=== PATIENT | female | born 1975 | race African-American/Black ===

== ENCOUNTER 2016-04-08 15:12 | Emergency (ER) | payer OTHER ==
[2016-04-08 15:19] VITALS: BP 149/96; TEMP 97.8; BMI 29.7
--- NOTE | 2016-04-08 15:39 | ED.PDOC ---
General ED Provider: Dr. KELVIN GLOVER JR Chief Complaint: Abdominal Pain Stated Complaint: SHARP/DULL PAIN TO THE LEFT LOWER MIDDLE ABD TO GROIN AREA. [ End ]5 days 97.8 79 20 97% 149/96 7/10 cramping pain sharpin LLQ suprapubic and shoulder pain Time Seen by Physician: 15:38 Mode of Arrival: Walk-In Information Source: Patient Exam Limitations: No limitations [facility] Documentation Reviewed and Agree: No Review of Systems - Review Of Systems Constitutional: Reports: Malaise Eyes: Reports: No symptoms Ears, Nose, Mouth, Throat: Reports: No symptoms Respiratory: Reports: No symptoms Cardiac: Reports: No symptoms GI: Reports: Abdominal pain : Reports: No symptoms Musculoskeletal: Reports: No symptoms Skin: Reports: No symptoms Neurological: Reports: No symptoms Endocrine: Reports: No symptoms Hematologic/Lymphatic: Reports: No symptoms All Other Systems: Other Past Medical History - Past Medical History Previously Healthy: Yes Endocrine: Reports: None, Dyslipidemia Cardiovascular: Reports: Hypertension Respiratory: Reports: None Hematological: Reports: Anemia Gastrointestinal: Reports: None Genitourinary: Reports: None Neuro/Psych: Reports: Migraine Musculoskeletal: Reports: None Cancer: Reports: None Last Menstrual Period: 2008 Other Pertinent Past Medical History: . - Surgical History General Surgical History: Reports: Other (lump removed from right breast 1995) - Family History Family History: Reports: Unknown - Social History Smoking Status: Current some day smoker Hx Substance Use: No Alcohol Screening: None - Immunizations Tetanus Shot up to Date: Yes Physical Exam - Physical Exam Appearance: Well-appearing Pain Distress: Moderate Eyes: BELINDA, EOMI, Conjunctiva clear ENT: Ears normal, Nose normal, Oropharynx normal Neck: Supple Respiratory: Airway patent, Breath sounds clear, Breath sounds equal, Respirations nonlabored Cardiovascular: RRR, Pulses normal, No rub, No murmur GI/: Tender (LLQ) Musculoskeletal: Normal strength, ROM intact, No edema, No calf tenderness Skin: Warm, Dry, Normal color Neurological: Sensation intact, Motor intact, Reflexes intact, Cranial nerves intact, Alert, Oriented Psychiatric: Affect appropriate, Mood appropriate Critical Care Note - Critical Care Note Total Time (mins): 0 Course - Course Hematology/Chemistry: 04/08/16 16:31 04/08/16 16:31 Orders, Labs, Meds: Lab Review 04/08/16 04/08/16 15:38 16:31 WBC 3.79 L RBC 4.38 Hgb 12.6 Hct 38.5 MCV 87.9 MCH 28.8 MCHC 32.7 RDW Coeff of Asim 13.0 Plt Count 229 Immature Gran % (Auto) 0.3 Neut % (Auto) 48.8 Lymph % (Auto) 42.5 [place] % (Auto) 5.8 Eos % (Auto) 1.8 Baso % (Auto) 0.8 Immature Gran # (Auto) 0.0 Neut # 1.9 L Lymph # 1.6 [place] # 0.2 L Eos # 0.1 Baso # 0.0 Sodium 141 Potassium 3.5 Chloride 105 Carbon Dioxide 29 Anion Gap 10.5 BUN 4 L Creatinine 0.83 Estimated GFR (MDRD) 92.00 BUN/Creatinine Ratio 4.81 Glucose 70 Calcium 9.3 Total Bilirubin 0.38 AST 17 ALT 15 Alkaline Phosphatase 82 Total Protein 7.2 Albumin 3.9 Globulin 3.3 Albumin/Globulin Ratio 1.18 Amylase 95 Lipase 35 Urine Color Yellow Urine Clarity Clear Urine pH 7.0 Ur Specific [place] 1.010 Urine Protein Negative Urine Glucose (UA) Negative Urine Ketones Negative Urine Blood Negative Urine Nitrite Negative Urine Bilirubin Negative Urine Urobilinogen 0.2 Ur Leukocyte Esterase Negative Urine Test Negative H. pylori IgG Antibody Positive Orders Category Date Time Status AMYLASE Stat LAB 04/08/16 16:31 Completed CBC W/ AUTO DIFF Stat LAB 04/08/16 16:31 Completed COMPREHENSIVE METABOLIC PANEL Stat LAB 04/08/16 16:31 Completed H. PYLORI SCREEN Stat LAB 04/08/16 16:31 Completed LIPASE Stat LAB 04/08/16 16:31 Completed URINALYSIS C & S IF INDICATED Stat LAB 04/08/16 15:38 Completed URINE Stat LAB 04/08/16 15:38 Completed Dicyclomine HCl [Bentyl] MEDS 04/08/16 15:48 Discontinued 20 mg PO ONCE STA CT ABDOMEN/PELVIS WO CONTRAST Stat RADS 04/08/16 15:48 Completed Medications Discontinued Medications Generic Name Dose Route Start Last Admin Trade Name Freq PRN Reason Stop Dose Admin Dicyclomine HCl 20 mg 04/08/16 15:48 04/08/16 16:04 Bentyl PO 04/08/16 15:49 20 mg ONCE STA Administration Vital Signs: Temp Pulse Resp BP Pulse Ox 04/08/16 15:13 97.8 F 79 20 149/96 H 97 Departure - Departure Time of Disposition: 17:27 Disposition: HOME SELF-CARE Discharge Problem: Helicobacter positive gastritis Instructions: Helicobacter Pylori (ED) Condition: Good Pt referred to PMD for follow-up: Yes Prescriptions: Hydrocodone Bit/Acetaminophen [[place] 5-325] 1 - 2 tab PO Q6HR PRN #20 tablet PRN Reason: pain Clarithromycin 500 mg PO BID #30 tablet Metronidazole [Flagyl] 500 mg PO BID #30 tablet Pantoprazole Sodium [Protonix] 20 mg PO BID #30 tablet. Allergies/Adverse Reactions: Allergies Penicillins Adverse Reaction (Verified 04/08/16 15:22) Sulfa (Sulfonamide Antibiotics) Adverse Reaction (Verified 04/08/16 15:22) sulfamethoxazole [From Bactrim] Adverse Reaction (Verified 04/08/16 15:22) trimethoprim [From Bactrim] Adverse Reaction (Verified 04/08/16 15:22) Home Medications: Ambulatory Orders Atorvastatin Calcium [Lipitor] 10 mg PO BEDTIME #30 tablet 11/05/15 Lisinopril 20 mg PO DAILY #30 tablet 11/05/15 Clarithromycin 500 mg PO BID #30 tablet 04/08/16 Hydrocodone Bit/Acetaminophen [[place] 5-325] 1 - 2 tab PO Q6HR PRN #20 tablet Metronidazole [Flagyl] 500 mg PO BID #30 tablet 04/08/16 Pantoprazole Sodium [Protonix] 20 mg PO BID #30 tablet. 04/08/16
[2016-04-08] MEDS ORDERED: BENTYL PO STA (15:48)
[2016-04-08 16:33] LABS: BASOPHILS % (AUTO) 0.8 % (0.0-3.0); EOSINOPHILS # (AUTO) 0.1 K/ul (0.0-0.7); EOSINOPHILS % (AUTO) 1.8 % (0.0-7.0); HEMATOCRIT 38.5 % (37.0-47.0); HEMOGLOBIN 12.6 g/dl (12.0-16.0); IMMATURE GRANULOCYTE % (AUTO) 0.3 % (0.0-5.0); LYMPHOCYTES # (AUTO) 1.6 K/uL (0.60-3.4); LYMPHOCYTES % (AUTO) 42.5 (10.0-50.0); MEAN CORPUSCULAR HEMOGLOBIN 28.8 pg (27.0-31.0); MEAN CORPUSCULAR HGB CONC 32.7 (31.8-35.4); MEAN CORPUSCULAR VOLUME 87.9 fl (81.0-99.0); MONOCYTES # (AUTO) 0.2 K/uL (0.4-2.0); MONOCYTES % (AUTO) 5.8 (0-10); NEUTROPHILS # (AUTO) 1.9 K/ul (2.0-6.9); NEUTROPHILS % (AUTO) 48.8; PLATELET COUNT 229 10^3/uL (140-440); RED BLOOD COUNT 4.38 10^6/ul (4.20-5.40); WHITE BLOOD COUNT 3.79 K/ul (4.6-10.2)
[2016-04-08 16:36] LABS: BILIRUBIN,URINE Negative (NEGATIVE); KETONES,URINE Negative (NEGATIVE); LEUKOCYTE ESTERASE ,URINE Negative (NEGATIVE); NITRITE,URINE Negative (NEGATIVE); PROTEIN,URINE Negative (NEGATIVE); URINE, BLOOD Negative (NEGATIVE)
[2016-04-08 16:41] LABS: URINE PREGNANCY INTERNAL QC INTERNAL QC VALID
[2016-04-08 16:45] LABS: H. PYLORI ANTIBODY POSITIVE (NEGATIVE); H.PYLORI INTERNAL QC INTERNAL QC VALID
[2016-04-08 16:51] LABS: ADD URINE MICROSCOPIC NO
[2016-04-08 16:55] LABS: ALBUMIN 3.9 g/dL (3.4-5.0); ALBUMIN/GLOBULIN RATIO 1.18; ANION GAP 10.5; BILIRUBIN,TOTAL 0.38 mg/dL (0.00-1.20); BUN/CREATININE RATIO 4.81; CALCIUM 9.3 mg/dL (8.2-10.2); CREATININE 0.83 mg/dL (0.60-1.30); POTASSIUM 3.5 mmol/L (3.5-5.10); TOTAL PROTEIN 7.2 g/dL (6.4-8.2)
--- NOTE | 2016-04-08 17:18 | CT ---
EXAM: CT abdomen and pelvis without contrast HISTORY: Abdominal pain TECHNIQUE: Multi-slice transaxial helical with coronal and sagittal reformed images COMPARISON: CT abdomen/pelvis from 03/25/2015 FINDINGS: The lung bases are free of acute airspace or interstitial opacities. The heart size is no rmal. There are no pericardial or pleural effusions. A calcified granuloma is noted in the left lowe r lobe. The hepatic attenuation is normal relative to the spleen. The gallbladder is present without biliar y dilatation. The pancreas and adrenal glands are normal. The spleen has normal size and attenuati on. The kidneys and ureters are grossly normal. Uterus is grossly normal. There is suggestion of a simple cyst in the right ovary measuring 1.9 cm. This is probably unchanged. The intestines incl uding appendix have normal caliber. The abdominal aorta has normal caliber. The uterus and left ad nexa are grossly normal. No lymphadenopathy or ascites. The bones are free of suspicious osteolytic or osteoblastic lesions. IMPRESSION: 1. Persistent probable simple cyst in the right ovary measuring 1.9 cm. 2. Normal appendix. Nonobstructive intestinal gas pattern. 3. Normal renal collecting systems. 4. No lymphadenopathy or ascites.
== END 2016-04-08 17:52 | disposition home or self-care (01) ==
LOC: ED 15:12
DX: K29.60 Other gastritis without bleeding (principal); B96.81 Helicobacter pylori [H. pylori] as the cause of diseases classified elsewhere; D64.9 Anemia, unspecified; I10 Essential (primary) hypertension; E78.5 Hyperlipidemia, unspecified; F17.210 Nicotine dependence, cigarettes, uncomplicated; Z79.899 Other long term (current) drug therapy
CPT/HCPCS: 36415; 80053; 81001; 81025; 82150; 83690; 85025; 86677; 99283

== ENCOUNTER 2016-06-24 16:27 | Outpatient (CLI) | END 2016-06-24 16:28 | disposition home or self-care (01) | LOC: LAB 16:27 | PROVIDERS: ATTEND Nurse Practitioner Family | DX: J02.9 Acute pharyngitis, unspecified (principal) | CPT/HCPCS: 87651; 87880 ==

== ENCOUNTER 2016-08-10 17:17 | Emergency (ER) | payer OTHER ==
[2016-08-10 17:19] VITALS: BP 148/95; TEMP 97.9; BMI 30.4
[2016-08-10 17:48] LABS: ADD URINE MICROSCOPIC NO; BILIRUBIN,URINE Negative (NEGATIVE); KETONES,URINE Negative (NEGATIVE); LEUKOCYTE ESTERASE ,URINE Negative (NEGATIVE); NITRITE,URINE Negative (NEGATIVE); PROTEIN,URINE Negative (NEGATIVE); URINE, BLOOD Negative (NEGATIVE)
[2016-08-10 17:54] LABS: URINE PREGNANCY INTERNAL QC INTERNAL QC VALID
[2016-08-10 18:08] LABS: BASOPHILS % (AUTO) 0.6 % (0.0-3.0); EOSINOPHILS # (AUTO) 0.1 K/ul (0.0-0.7); HEMATOCRIT 42.3 % (37.0-47.0); HEMOGLOBIN 13.9 g/dl (12.0-16.0); IMMATURE GRANULOCYTE % (AUTO) 0.4 % (0.0-5.0); LYMPHOCYTES % (AUTO) 40.2 (10.0-50.0); MEAN CORPUSCULAR HEMOGLOBIN 28.9 pg (27.0-31.0); MEAN CORPUSCULAR HGB CONC 32.9 (31.8-35.4); MEAN CORPUSCULAR VOLUME 87.9 fl (81.0-99.0); MONOCYTES # (AUTO) 0.3 K/uL (0.4-2.0); MONOCYTES % (AUTO) 5.6 (0-10); NEUTROPHILS # (AUTO) 2.6 K/ul (2.0-6.9); NEUTROPHILS % (AUTO) 51.2; PLATELET COUNT 263 10^3/uL (140-440); RED BLOOD COUNT 4.81 10^6/ul (4.20-5.40); WHITE BLOOD COUNT 4.98 K/ul (4.6-10.2)
--- NOTE | 2016-08-10 18:08 | CT ---
EXAM: CT abdomen and pelvis without contrast HISTORY: Dull pain in left lower quadrant TECHNIQUE: Multi-slice transaxial helical with coronal and sagittal reformed images COMPARISON: CT abdomen/pelvis from 04/08/2016 FINDINGS: The lung bases are free of acute airspace or interstitial opacities. The heart size is no rmal. There are no pericardial or pleural effusions. A calcified granuloma is noted in the left lowe r lobe. The hepatic attenuation is normal relative to the spleen. The gallbladder is present without biliar y dilatation. A tiny hypodensity in the right posterior hepatic lobe is suggested measuring 3.6 mm that is too small to characterize with accuracy but likely represents a simple cyst. The pancreas a nd adrenal glands are normal. The spleen has normal size and attenuation. No nephrolithiasis or ur eterolithiasis are appreciated. The ureters have normal caliber. The nonopacified bladder is davie l. The intestines including the appendix have normal caliber. No lymphadenopathy or ascites are apprec iated. The aorta is normal caliber. The uterus and left adnexa are grossly normal. A simple cyst at the right adnexa and is 2.1 cm. The bones are free of suspicious osteolytic or osteoblastic lesions. IMPRESSION: 1. Simple cyst in the right adnexa measuring 2.1 cm. 2. Normal appendix. Nonobstructive intestinal gas pattern. 3. Normal renal collecting systems. 4. Tiny simple cyst suggested in the right posterior hepatic lobe.
[2016-08-10 18:25] LABS: ALBUMIN 4.1 g/dL (3.4-5.0); ALBUMIN/GLOBULIN RATIO 1.03; ANION GAP 12.4; BILIRUBIN,TOTAL 0.33 mg/dL (0.00-1.20); BUN/CREATININE RATIO 5.31; CALCIUM 9.5 mg/dL (8.2-10.2); CREATININE 0.94 mg/dL (0.60-1.30); POTASSIUM 3.4 mmol/L (3.5-5.10); TOTAL PROTEIN 8.1 g/dL (6.4-8.2)
--- NOTE | 2016-08-10 18:34 | ED.PDOC ---
General ED Provider: Dr. LUISA CASTELLANO Chief Complaint: Abdominal Pain Stated Complaint: abdominal pain Time Seen by Physician: 17:17 (seen with boat cleaner at all times ) Mode of Arrival: Walk-In Information Source: Patient Exam Limitations: No limitations [facility] Documentation Reviewed and Agree: No GI Complaint Exam - Abdominal Pain Complaint/Exam Onset: Gradual Duration: 1 day Symptoms Are: Still present Timing: Intermittent Initial Severity: Mild Current Severity: Mild Location of Pain: LLQ Character: Reports: Dull Aggravating: Reports: None Alleviating: Reports: None Associated Signs and Symptoms: Denies: Diaphoresis, Fever, Cough, Chest pain, Dizziness, Back pain, Constipation, Blood in stool, Dysuria, Urinary frequency, Decreased urine output, Decreased appetite, Vaginal bleeding, Vaginal discharge , Nausea, Vomiting, Diarrhea, Sore throat, Decreased activity Related History: Reports: Similar episode AAA Risk Factors: Reports: None Ectopic Risk Factors: Reports: None Ovarian Torsion Risk Factors: Reports: None Surgical Obstruction Risk Factors: Reports: None Related Surgical History: Reports: None Patient Rh Status: Unknown Abdominal Findings: Present: None Differential Diagnoses: Appendicitis, Bowel Obstruction, Constipation, Diverticulitis, Gastroenteritis Review of Systems - Review Of Systems Constitutional: Reports: No symptoms Eyes: Reports: No symptoms Ears, Nose, Mouth, Throat: Reports: No symptoms Respiratory: Reports: No symptoms Cardiac: Reports: No symptoms GI: Reports: Abdominal pain : Reports: No symptoms Musculoskeletal: Reports: No symptoms Skin: Reports: No symptoms Neurological: Reports: No symptoms Endocrine: Reports: No symptoms Hematologic/Lymphatic: Reports: No symptoms All Other Systems: Reviewed and Negative Past Medical History - Past Medical History Previously Healthy: Yes Endocrine: Reports: None, Dyslipidemia Cardiovascular: Reports: Hypertension Respiratory: Reports: None Hematological: Reports: Anemia Gastrointestinal: Reports: None Genitourinary: Reports: None Neuro/Psych: Reports: Migraine Musculoskeletal: Reports: None Cancer: Reports: None Last Menstrual Period: 4 years ago Other Pertinent Past Medical History: . - Surgical History General Surgical History: Reports: Other (lump removed from right breast 1995) - Family History Family History: Reports: Unknown - Social History Smoking Status: Current some day smoker Hx Substance Use: No Alcohol Screening: None Physical Exam - Physical Exam Appearance: Well-appearing, No pain distress, Well-nourished Eyes: BELINDA, EOMI, Conjunctiva clear ENT: Ears normal, Nose normal, Oropharynx normal Respiratory: Airway patent, Breath sounds clear, Breath sounds equal, Respirations nonlabored Cardiovascular: RRR, Pulses normal, No rub, No murmur GI/: Soft, Nontender, No masses, Bowel sounds normal, No Organomegaly Musculoskeletal: Normal strength, ROM intact, No edema, No calf tenderness Skin: Warm, Dry, Normal color Neurological: Sensation intact, Motor intact, Reflexes intact, Cranial nerves intact, Alert, Oriented Psychiatric: Affect appropriate, Mood appropriate Interpretation - Radiology Interpretation Radiology Interpretation By: Radiologist Radiology Results: No acute changes Re-Evaluation - Re-Evaluation Time of Re-Evaluation: 18:33 Status: Improved Vital Signs Stable: Yes Pain Level: 0 Appearance: NAD Lungs: Clear Skin: Warm and Dry Neuro: Alert and Oriented X3 CV: RRR Critical Care Note - Critical Care Note Total Time (mins): 0 Course - Course Hematology/Chemistry: 08/10/16 18:00 08/10/16 18:00 Orders, Labs, Meds: Lab Review 08/10/16 08/10/16 17:30 18:00 WBC 4.98 RBC 4.81 Hgb 13.9 Hct 42.3 MCV 87.9 MCH 28.9 MCHC 32.9 RDW Coeff of Asim 12.9 Plt Count 263 Immature Gran % (Auto) 0.4 Neut % (Auto) 51.2 Lymph % (Auto) 40.2 [place] % (Auto) 5.6 Eos % (Auto) 2.0 Baso % (Auto) 0.6 Immature Gran # (Auto) 0.0 Neut # 2.6 Lymph # 2.0 [place] # 0.3 L Eos # 0.1 Baso # 0.0 Sodium 140 Potassium 3.4 L Chloride 104 Carbon Dioxide 27 Anion Gap 12.4 BUN 5 L Creatinine 0.94 Estimated GFR (MDRD) 80.00 BUN/Creatinine Ratio 5.31 Glucose 73 Calcium 9.5 Total Bilirubin 0.33 AST 21 ALT 25 Alkaline Phosphatase 86 Total Protein 8.1 Albumin 4.1 Globulin 4.0 Albumin/Globulin Ratio 1.03 Amylase 83 Lipase 25 Urine Color Yellow Urine Clarity Clear Urine pH 7.0 Ur Specific [place] 1.020 Urine Protein Negative Urine Glucose (UA) Negative Urine Ketones Negative Urine Blood Negative Urine Nitrite Negative Urine Bilirubin Negative Urine Urobilinogen 1.0 Ur Leukocyte Esterase Negative Urine Test Negative Orders Category Date Time Status AMYLASE Stat LAB 08/10/16 18:00 Completed CBC W/ AUTO DIFF Stat LAB 08/10/16 18:00 Completed COMPREHENSIVE METABOLIC PANEL Stat LAB 08/10/16 18:00 Completed LIPASE Stat LAB 08/10/16 18:00 Completed URINALYSIS C & S IF INDICATED Stat LAB 08/10/16 17:30 Completed URINE Stat LAB 08/10/16 17:[address] ABDOMEN/PELVIS WO CONTRAST Stat RADS 08/10/16 17:40 Completed Vital Signs: Temp Pulse Resp BP Pulse Ox 08/10/16 17:17 97.9 F 81 18 148/95 H 98 Departure - Departure Time of Disposition: 18:33 Disposition: HOME SELF-CARE Discharge Problem: Abdominal pain Instructions: Abdominal Pain (ED) Condition: Good Pt referred to PMD for follow-up: No Prescriptions: Hydrocodone/Acetaminophen [[place] 10-325 Tablet] 1 each PO Q8HR #5 tablet Allergies/Adverse Reactions: Allergies Penicillins Adverse Reaction (Verified 08/10/16 17:20) Sulfa (Sulfonamide Antibiotics) Adverse Reaction (Verified 08/10/16 17:20) sulfamethoxazole [From Bactrim] Adverse Reaction (Verified 08/10/16 17:20) trimethoprim [From Bactrim] Adverse Reaction (Verified 08/10/16 17:20) Home Medications: Ambulatory Orders Hydrocodone/Acetaminophen [[place] 10-325 Tablet] 1 each PO Q8HR #5 tablet
== END 2016-08-10 18:42 | disposition home or self-care (01) ==
LOC: ED 17:17
DX: R10.32 Left lower quadrant pain (principal); Z72.0 Tobacco use
CPT/HCPCS: 36415; 80053; 81001; 81025; 82150; 83690; 85025; 99283

== ENCOUNTER 2017-02-20 16:27 | Emergency (ER) ==
[2017-02-20 16:36] VITALS: TEMP 98.7; BMI 32.8
[2017-02-20] MEDS ORDERED: TORADOL IVP STA (16:59)
[2017-02-20] MEDS ORDERED: SODIUM CHLORIDE 1,000 ML IV STA (16:59)
--- NOTE | 2017-02-20 17:01 | ED.PDOC ---
General ED Provider: Dr. FUNMILAYO ZARATE Chief Complaint: Back Pain Stated Complaint: Patient state she woke up with severe bilateral flank pain this morning. Took the over the counter medication but still has pain. Time Seen by Physician: 17:00 Mode of Arrival: Walk-In Information Source: Patient Exam Limitations: No limitations [facility] and Triage Documentation Reviewed and Agree: Yes GI Complaint Exam - Abdominal Pain Complaint/Exam Onset: Gradual Duration: 1 day Symptoms Are: Still present Timing: Constant Initial Severity: Severe Current Severity: Moderate Location of Pain: Suprapubic (radiatin from the flanks. ) Associated Signs and Symptoms: Reports: Back pain. Denies: Diaphoresis, Constipation, Dysuria, Decreased urine output, Vaginal bleeding AAA Risk Factors: Reports: None Cardiac Risk Factors: Reports: None Ectopic Risk Factors: Reports: None Ovarian Torsion Risk Factors: Reports: Hysterectomy Surgical Obstruction Risk Factors: Reports: None Related Surgical History: Reports: None Patient Rh Status: Unknown Abdominal Findings: Present: CVA Tenderness Differential Diagnoses: UTI Review of Systems - Review Of Systems Constitutional: Reports: No symptoms Eyes: Reports: No symptoms Ears, Nose, Mouth, Throat: Reports: No symptoms Respiratory: Reports: No symptoms Cardiac: Reports: No symptoms GI: Reports: No symptoms : Reports: Flank pain Musculoskeletal: Reports: Back pain Skin: Reports: No symptoms Neurological: Reports: No symptoms Endocrine: Reports: No symptoms Hematologic/Lymphatic: Reports: No symptoms All Other Systems: Reviewed and Negative Past Medical History - Past Medical History Previously Healthy: Yes Endocrine: Reports: None, Dyslipidemia Cardiovascular: Reports: Hypertension Respiratory: Reports: None Hematological: Reports: Anemia Gastrointestinal: Reports: None Genitourinary: Reports: None Neuro/Psych: Reports: Migraine Musculoskeletal: Reports: None Cancer: Reports: None Last Menstrual Period: hysterectomy Other Pertinent Past Medical History: . - Surgical History General Surgical History: Reports: Other (lump removed from right breast 1995) - Family History Family History: Reports: Unknown - Social History Smoking Status: Current every day smoker, Light tobacco smoker Hx Substance Use: No Alcohol Screening: None Physical Exam - Physical Exam Appearance: Ill-appearing Ill-appearing: Moderate Pain Distress: Severe Neck: Supple Respiratory: Airway patent, Breath sounds clear, Breath sounds equal, Respirations nonlabored Cardiovascular: RRR, Pulses normal, No rub, No murmur GI/: Soft, Nontender, No masses, Bowel sounds normal, No Organomegaly Musculoskeletal: Normal strength, ROM intact Skin: Warm, Dry Neurological: Sensation intact Psychiatric: Anxious Interpretation - Radiology Interpretation Radiology Interpretation By: Radiologist Radiology Results: Negative Exam Interpreted: CT Scan (Abdomen ) Critical Care Note - Critical Care Note Total Time (mins): 0 Course - Course Hematology/Chemistry: 02/20/17 17:08 02/20/17 17:08 Orders, Labs, Meds: Lab Review 02/20/17 02/20/17 02/20/17 16:59 17:08 17:08 WBC 4.83 RBC 4.69 Hgb 13.3 Hct 41.0 MCV 87.4 MCH 28.4 MCHC 32.4 RDW Coeff of Asim 13.2 Plt Count 273 Immature Gran % (Auto) 0.2 Neut % (Auto) 48.4 Lymph % (Auto) 43.1 [place] % (Auto) 5.2 Eos % (Auto) 2.1 Baso % (Auto) 1.0 Immature Gran # (Auto) 0.0 Neut # 2.3 Lymph # 2.1 [place] # 0.3 L Eos # 0.1 Baso # 0.1 Sodium 140 Potassium 3.6 Chloride 107 Carbon Dioxide 23 Anion Gap 13.6 BUN 5 L Creatinine 0.84 Estimated GFR (MDRD) 91.00 BUN/Creatinine Ratio 5.95 Glucose 78 Calcium 9.4 Total Bilirubin 0.25 AST 19 ALT 14 Alkaline Phosphatase 86 Total Protein 7.7 Albumin 3.8 Globulin 3.9 Albumin/Globulin Ratio 0.97 Amylase 93 Lipase 36 Urine Color [place] Urine Clarity Cloudy Urine pH 5.5 Ur Specific [place] 1.020 Urine Protein Negative Urine Glucose (UA) Trace Urine Ketones Negative Urine Blood Negative Urine Nitrite Positive Urine Bilirubin Negative Urine Urobilinogen 1.0 Ur Leukocyte Esterase Negative Urine Microscopic WBC 2-5 Ur Squamous Epith Cells 5-10 Urine Bacteria 2+ Orders Category Date Time Status AMYLASE Stat LAB 02/20/17 17:08 Completed CBC W/ AUTO DIFF Stat LAB 02/20/17 17:08 Completed COMPREHENSIVE METABOLIC PANEL Stat LAB 02/20/17 17:08 Completed LIPASE Stat LAB 02/20/17 17:08 Completed UA [URINALYSIS C & S IF INDICATED] Stat LAB 02/20/17 16:59 Completed URINE CULTURE Stat LAB 02/20/17 16:59 Received Ketorolac Tromethamine [Toradol] MEDS 02/20/17 16:59 Discontinued 30 mg IVP ONCE STA Levofloxacin/D5w [Levaquin] 100 ml MEDS 02/20/17 17:42 Discontinued IV .STK-MED Levofloxacin/D5w [Levaquin] 500 mg MEDS 02/20/17 17:39 Discontinued Premix 100 ml D5w 1 bag IV ONCE Morphine Sulfate [Morphine 2 mg/ml Syringe] MEDS 02/20/17 18:34 Discontinued 2 mg IVP ONCE STA Ondansetron HCl/Pf [Zofran 4 mg/2 ml] MEDS 02/20/17 18:34 Discontinued 4 mg IVP ONCE STA Sodium Chloride 0.9% [Sodium Chloride] 1,000 ml MEDS 02/20/17 16:[address] ABD/PEL WO RENAL STONE PROT Stat RADS 02/20/17 17:40 Completed Medications Discontinued Medications Generic Name Dose Route Start Last Admin Trade Name Freq PRN Reason Stop Dose Admin Sodium Chloride 1,000 mls @ 1,000 mls/hr 02/20/17 16:59 02/20/17 17:20 Sodium Chloride IV 02/20/17 17:58 1,000 mls/hr BOLUS STA Administration Levofloxacin/Dextrose 500 mg/ 100 mls @ 100 mls/hr 02/20/17 17:39 02/20/17 17 :43 Dextrose IV 02/20/17 18:38 100 mls/hr ONCE STA Administration Ketorolac Tromethamine 30 mg 02/20/17 16:59 02/20/17 17:23 Toradol IVP 02/20/17 17:00 30 mg ONCE STA Administration Morphine Sulfate 2 mg 02/20/17 18:34 Morphine 2 Mg/Ml Syringe IVP 02/20/17 18:35 ONCE STA Ondansetron HCl 4 mg 02/20/17 18:34 Zofran 4 Mg/2 Ml IVP 02/20/17 18:35 ONCE STA Vital Signs: Temp Pulse Resp BP Pulse Ox 02/20/17 18:34 152/96 H 02/20/17 16:27 98.7 F 78 16 160/91 H 98 Departure - Departure Time of Disposition: 19:00 Disposition: HOME SELF-CARE Discharge Problem: Urinary tract infection Qualifiers: Urinary tract infection type: acute cystitis Hematuria presence: without hematuria Qualified Code(s): N30.00 - Acute cystitis without hematuria Instructions: Urinary Tract Infection in Women (ED) Condition: Stable Pt referred to PMD for follow-up: Yes Additional Instructions: Take Medications as prescribed Follow up with PCP in 3 days Prescriptions: Levofloxacin [Levaquin] 500 mg PO DAILY #10 tablet Oxycodone-Acetaminophen 5-325 [Percocet 5-325] 1 tab PO Q6H #14 tablet Allergies/Adverse Reactions: Allergies Penicillins Adverse Reaction (Verified 02/20/17 16:35) Sulfa (Sulfonamide Antibiotics) Adverse Reaction (Verified 02/20/17 16:35) sulfamethoxazole [From Bactrim] Adverse Reaction (Verified 02/20/17 16:35) trimethoprim [From Bactrim] Adverse Reaction (Verified 02/20/17 16:35) Home Medications: Ambulatory Orders Levofloxacin [Levaquin] 500 mg PO DAILY #10 tablet 02/20/17 Oxycodone-Acetaminophen 5-325 [Percocet 5-325] 1 tab PO Q6H #14 tablet 02/20/17 Disposition Discussed With: Patient, Family
[2017-02-20 17:07] LABS: BILIRUBIN,URINE Negative (NEGATIVE); KETONES,URINE Negative (NEGATIVE); LEUKOCYTE ESTERASE ,URINE Negative (NEGATIVE); NITRITE,URINE Positive (NEGATIVE); PH,URINE 5.5 (5-9); PROTEIN,URINE Negative (NEGATIVE); URINE, BLOOD Negative (NEGATIVE)
[2017-02-20 17:08] LABS: ADD URINE MICROSCOPIC YES; BACTERIA,URINE 2+ (NOT PRESENT)
[2017-02-20 17:13] LABS: BASOPHILS # (AUTO) 0.1 K/uL (0-0.2); EOSINOPHILS # (AUTO) 0.1 K/ul (0.0-0.7); EOSINOPHILS % (AUTO) 2.1 % (0.0-7.0); HEMOGLOBIN 13.3 g/dl (12.0-16.0); IMMATURE GRANULOCYTE % (AUTO) 0.2 % (0.0-5.0); LYMPHOCYTES # (AUTO) 2.1 K/uL (0.60-3.4); LYMPHOCYTES % (AUTO) 43.1 (10.0-50.0); MEAN CORPUSCULAR HEMOGLOBIN 28.4 pg (27.0-31.0); MEAN CORPUSCULAR HGB CONC 32.4 (31.8-35.4); MEAN CORPUSCULAR VOLUME 87.4 fl (81.0-99.0); MONOCYTES # (AUTO) 0.3 K/uL (0.4-2.0); MONOCYTES % (AUTO) 5.2 (0-10); NEUTROPHILS # (AUTO) 2.3 K/ul (2.0-6.9); NEUTROPHILS % (AUTO) 48.4; PLATELET COUNT 273 10^3/uL (140-440); RED BLOOD COUNT 4.69 10^6/ul (4.20-5.40); WHITE BLOOD COUNT 4.83 K/ul (4.6-10.2)
[2017-02-20 17:33] LABS: ALBUMIN 3.8 g/dL (3.4-5.0); ALBUMIN/GLOBULIN RATIO 0.97; ANION GAP 13.6; BILIRUBIN,TOTAL 0.25 mg/dL (0.00-1.20); BUN/CREATININE RATIO 5.95; CALCIUM 9.4 mg/dL (8.2-10.2); CREATININE 0.84 mg/dL (0.60-1.30); POTASSIUM 3.6 mmol/L (3.5-5.10); TOTAL PROTEIN 7.7 g/dL (6.4-8.2)
[2017-02-20] MEDS ORDERED: LEVAQUIN 500 MG in PREMIX 100 ML D5W 1 BAG IV STA (17:39)
[2017-02-20] MEDS ORDERED: LEVAQUIN 100 ML IV ONE (17:42)
--- NOTE | 2017-02-20 18:17 | CT ---
EXAM: CT of the abdomen pelvis without contrast History: Bilateral flank pain. Comparison: CT abdomen pelvis 08/10/2016 Technique: Multiplanar CT images through the abdomen pelvis were obtained without the administration of IV contrast Findings: Lung bases are free of consolidation. Calcified granuloma within the left lower lobe. No acute osseous abnormalities. No discrete gallstones identified by CT. No focal liver or splenic lesions. No renal stones and no hydronephrosis. No ureteral calculi. Bladder is not well distended. There is no focal bladder wall thickening. The appendix is normal. No bowel obstruction. No free air and no ascites. No peripanc reatic inflammation. Adrenal glands are unremarkable. No free air and no ascites. Uterus is not se en. Impression: No acute intra-abdominal or pelvic process
[2017-02-20] MEDS ORDERED: MORPHINE 2 MG/ML SYRINGE IVP STA (18:34)
[2017-02-20] MEDS ORDERED: ZOFRAN 4 MG/2 ML IVP STA (18:34)
[2017-02-20 19:19] VITALS: BP 122/94
== END 2017-02-20 19:45 | disposition home or self-care (01) ==
LOC: ED 16:27
DX: N30.00 Acute cystitis without hematuria (principal); F17.210 Nicotine dependence, cigarettes, uncomplicated
CPT/HCPCS: 36415; 74176; 80053; 81001; 82150; 83690; 85025; 87086; 96360; 96361; 96365; 96375; 99284

== ENCOUNTER 2017-04-01 18:57 | Inpatient (IN) ==
[2017-04-01] MEDS ORDERED: TORADOL IVP STA (19:09)
[2017-04-01] MEDS ORDERED: MORPHINE 2 MG/ML SYRINGE IVP STA (19:09)
[2017-04-01] MEDS ORDERED: ZOFRAN 4 MG/2 ML IVP STA (19:09)
[2017-04-01] MEDS ORDERED: POTASSIUM CHLORIDE PREMIX RUN 10 MEQ in PREMIX 100 ML WATER 1 BAG IV STA ×8 (20:41→20:43)
[2017-04-01] MEDS ORDERED: SODIUM CHLORIDE 1,000 ML IV STA (20:46)
[2017-04-01] MEDS ORDERED: POTASSIUM CHLORIDE PREMIX RUN 300 ML IV ONE (20:51)
--- NOTE | 2017-04-01 20:51 | CT ---
EXAM: CTA of the chest. History: Chest pain. Comparison: Chest radiograph 11/03/2015, chest CT 06/10/2010 Technique: Multiplanar CT images through the chest were obtained following administration of IV cont rast. MIP images and 3-D reconstructions were also acquired. Findings: Heart size is upper limits of normal. No pericardial effusion. Great vessels are unremark able. No pathologically enlarged thoracic lymph nodes. Calcified granulomas again seen within the t horax. No consolidation. No pleural fluid and no pneumothorax. No suspicious lung masses or lung n odules. Within the visualized upper abdomen, no acute findings. No acute osseous abnormalities. No pulmonary arterial filling defects. Impression: 1. No pulmonary embolism and no acute intrathoracic process. 2. Old granulomatous disease.
--- NOTE | 2017-04-01 20:56 | ED.PDOC ---
General ED Provider: Dr. ZAMZAM SANTANA-ER Chief Complaint: Chest Pain Stated Complaint: my chest hurts and my arms and legs are weak and numb Time Seen by Physician: 19:05 Mode of Arrival: Walk-In Information Source: Patient Exam Limitations: No limitations Primary Care Provider: [facility] Nursing and Triage Documentation Reviewed and Agree: Yes Reviewed sepsis parameters & appropriate labs ordered?: Yes System Inflammatory Response Syndrome: Not Applicable Sepsis Protocol: For patient's 13 years and over: Temp is 96.8 and below OR 101 and greater Pulse >90 BPM Resp >20/minute Acutely Altered Mental Status Are patient's symptoms suggestive of a new infection, such as: -Pneumonia -Skin, Soft Tissue -Endocarditis -UTI -Bone, Joint Infection -Implantable Device -Acute Abdominal Infection -Wound Infection -Meningitis -Blood Stream Catheter Infection -Unknown Cardiovascular Complaint Exam - Chest Pain Complaint/Exam Onset: Sudden Duration: one hour Symptoms Are: Still present Initial Severity: Mild Current Severity: Mild Location: Reports: Diffuse Pain Radiates: Reports: Left arm, Right arm Character: Reports: Dull, Aching, Sharp Aggravating: Reports: Exertion Alleviating: Reports: None Associated Signs and Symptoms: Denies: Diaphoresis, Nausea, Vomiting, Fever, Palpitations, Cough, Hemoptysis, Back pain, Abdominal pain, Dizziness, Short of air, Calf pain, Calf swelling Related History: Reports: Current Sam Inhibitors Related Surgical History: Reports: None History of Healthcare-Acquired Pneumonia: Reports: No AMI/ACS Risk Factors: Reports: Hypertension TAD Risk Factors: Reports: None Pulmonary Embolism Risk Factors: Reports: None Prior Care for this Complaint: No Recent Stress Test: No Recent Echo/LV Function: No JVD Present: No Subcutaneous Emphysema Present: No Diminshed Breath Sounds: No Reproducible Chest Wall Pain: No Bilateral Pulses Present: Yes Unequal Pulses Noted: No If Risk Factors for TAD Consider: Chest CT with contrast, Blood pressure control Clay Structure Builder And Servicer Consulted: No Differential Diagnoses: Acute [place], Unstable Angina, Aortic Aneurysm, Chest Wall Pain, GI Diseasae, Pulmonary Embolism Quality Indicator For Non-Traumatic Chest Pain/Syncope: EKG Performed Review of Systems - Review Of Systems Constitutional: Reports: No symptoms Eyes: Reports: No symptoms Ears, Nose, Mouth, Throat: Reports: No symptoms Respiratory: Reports: No symptoms Cardiac: Reports: Chest pain GI: Reports: No symptoms : Reports: No symptoms Musculoskeletal: Reports: No symptoms Skin: Reports: No symptoms Neurological: Reports: No symptoms Endocrine: Reports: No symptoms Hematologic/Lymphatic: Reports: No symptoms All Other Systems: Reviewed and Negative Past Medical History - Past Medical History Previously Healthy: Yes Endocrine: Reports: None, Dyslipidemia Cardiovascular: Reports: Hypertension Respiratory: Reports: None Hematological: Reports: Anemia Gastrointestinal: Reports: None Genitourinary: Reports: None Neuro/Psych: Reports: Migraine Musculoskeletal: Reports: None Cancer: Reports: None Last Menstrual Period: NA Other Pertinent Past Medical History: . - Surgical History General Surgical History: Reports: Other (lump removed from right breast 1995) - Family History Family History: Reports: Unknown - Social History Smoking Status: Current every day smoker, Light tobacco smoker Hx Substance Use: No Alcohol Screening: None Lives: With family - Immunizations Tetanus Shot up to Date: Yes Physical Exam - Physical Exam Appearance: Well-appearing, No pain distress, Well-nourished Pain Distress: Moderate Eyes: BELINDA, EOMI, Conjunctiva clear ENT: Ears normal, Nose normal, Oropharynx normal Neck: Supple Respiratory: Airway patent, Breath sounds clear, Breath sounds equal, Respirations nonlabored Cardiovascular: RRR, Pulses normal, No rub, No murmur GI/: Soft Musculoskeletal: Normal strength, ROM intact, No edema, No calf tenderness Skin: Warm, Dry, Normal color Neurological: Sensation intact Psychiatric: Affect appropriate, Mood appropriate, Anxious Interpretation - Radiology Interpretation Radiology Interpretation By: Radiologist Radiology Results: Negative Exam Interpreted: CT Scan - EKG Interpretation Time of EKG #1: 21:00 Rate: Normal Rhythm: Sinus Ectopy: None [place]: NL ST Segment: Normal Re-Evaluation - Re-Evaluation Time of Re-Evaluation: 21:00 Status: Improved Vital Signs Stable: Yes Pain Level: 1 Appearance: NAD Lungs: Clear Skin: Warm and Dry Neuro: Alert and Oriented X3 CV: RRR Physician Notification - Case Discussed Physician Notified: dr goodrich Time of Notification: 21:11 Critical Care Note - Critical Care Note Total Time (mins): 0 Course - Course Hematology/Chemistry: 04/01/17 19:15 04/01/17 19:15 Orders, Labs, Meds: Lab Review 04/01/17 04/01/17 04/01/17 19:15 19:15 19:15 WBC 5.40 RBC 4.37 Hgb 12.7 Hct 38.6 MCV 88.3 MCH 29.1 MCHC 32.9 RDW Coeff of Asim 13.0 Plt Count 267 Immature Gran % (Auto) 0.2 Neut % (Auto) 48.2 Lymph % (Auto) 42.6 [place] % (Auto) 6.1 Eos % (Auto) 2.2 Baso % (Auto) 0.7 Immature Gran # (Auto) 0.0 Neut # 2.6 Lymph # 2.3 [place] # 0.3 L Eos # 0.1 Baso # 0.0 Sodium 136 Potassium 2.8 L Chloride 104 Carbon Dioxide 26 Anion Gap 8.8 BUN 7 Creatinine 0.84 Estimated GFR (MDRD) 91.00 BUN/Creatinine Ratio 8.33 Glucose 77 Calcium 9.2 Magnesium 2.2 Total Bilirubin 0.3 AST 16 ALT 14 Alkaline Phosphatase 91 Total Creatine Kinase 152 CK-MB (CK-2) 0.8 CK-MB (CK-2) % 0.05054 Troponin I < 0.0100 Total Protein 7.4 Albumin 3.6 Globulin 3.8 Albumin/Globulin Ratio 0.95 Amylase 152 H Lipase 151 H TSH 1.038 Free T4 1.05 Orders Category Date Time Status EKG-(ED ONLY) Stat CARDIO 04/01/17 19:04 Completed NPO REMINDER: IMAGING ONCE CARE 04/01/17 19:06 Completed ED ENROUTE CONTROLLER APPLIED .ONCE EMERGENCY 04/01/17 19:04 Active IV [ED IV/MEDIPORT/POWERPORT] .ONCE EMERGENCY 04/01/17 19:05 Active AMYLASE Stat LAB 04/01/17 19:15 Completed CBC W/ AUTO DIFF Stat LAB 04/01/17 19:15 Completed COMPREHENSIVE METABOLIC PANEL Stat LAB 04/01/17 19:15 Completed CREATINE KINASE Stat LAB 04/01/17 19:15 Completed FREE T4 (FREE THYROXINE) Stat LAB 04/01/17 19:15 Completed LIPASE Stat LAB 04/01/17 19:15 Completed MAGNESIUM Stat LAB 04/01/17 19:15 Completed THYROID STIMULATING HORMONE Stat LAB 04/01/17 19:15 Completed TROPONIN I Stat LAB 04/01/17 19:15 Completed 0.9 % Sodium Chloride [Saline Flush] MEDS 04/01/17 19:05 Ordered 1 syr IVF PRN PRN Ketorolac Tromethamine [Toradol] MEDS 04/01/17 19:09 Discontinued 30 mg IVP ONCE STA Morphine Sulfate [Morphine 2 mg/ml Syringe] MEDS 04/01/17 19:09 Discontinued 2 mg IVP ONCE STA Ondansetron HCl/Pf [Zofran 4 mg/2 ml] MEDS 04/01/17 19:09 Discontinued 4 mg IVP ONCE STA Potassium Chloride [Potassium Chloride Premix Run] 10 MEDS 04/01/17 20:41 Active meq Premix 100 ml Water 1 bag IV ONCE Potassium Chloride [Potassium Chloride Premix [place]] 10 MEDS 04/01/17 20:42 Active meq Premix 100 ml Water 1 bag IV ONCE Potassium Chloride [Potassium Chloride Premix [place]] 10 MEDS 04/01/17 20:42 Active meq Premix 100 ml Water 1 bag IV ONCE Potassium Chloride [Potassium Chloride Premix [place]] 10 MEDS 04/01/17 20:42 Active meq Premix 100 ml Water 1 bag IV ONCE Potassium Chloride [Potassium Chloride Premix [place]] 10 MEDS 04/01/17 20:43 Active meq Premix 100 ml Water 1 bag IV ONCE Potassium Chloride [Potassium Chloride Premix [place]] 300 MEDS 04/01/17 20:51 Discontinued ml IV .STK-MED Sodium Chloride 0.9% [Sodium Chloride] 1,000 ml MEDS 04/01/17 20:46 Active IV 150 mls/hr CT CHEST PE PROTOCOL Stat RADS 04/01/17 19:05 Completed Medications Generic Name Dose Route Start Last Admin Trade Name Freq PRN Reason Stop Dose Admin Potassium Chloride 10 meq/ 100 mls @ 100 mls/hr 04/01/17 20:41 04/01/17 21:00 Sterile Water IV 04/01/17 21:40 100 mls/hr ONCE STA Administration Potassium Chloride 10 meq/ 100 mls @ 100 mls/hr 04/01/17 20:42 Sterile Water IV 04/01/17 21:41 ONCE STA Potassium Chloride 10 meq/ 100 mls @ 100 mls/hr 04/01/17 20:42 Sterile Water IV 04/01/17 21:41 ONCE STA Potassium Chloride 10 meq/ 100 mls @ 100 mls/hr 04/01/17 20:42 Sterile Water IV 04/01/17 21:41 ONCE STA Potassium Chloride 10 meq/ 100 mls @ 100 mls/hr 04/01/17 20:43 Sterile Water IV 04/01/17 21:42 ONCE STA Sodium Chloride 1,000 mls @ 150 mls/hr 04/01/17 20:46 04/01/17 21:00 Sodium Chloride IV 04/02/17 03:25 150 mls/hr .[id number] STA Administration Sodium Chloride 1 syr 04/01/17 19:05 04/01/17 19:53 Saline Flush IVF 1 syr PRN PRN Administration To flush IV Discontinued Medications Generic Name Dose Route Start Last Admin Trade Name Freq PRN Reason Stop Dose Admin Ketorolac Tromethamine 30 mg 04/01/17 19:09 04/01/17 19:52 Toradol IVP 04/01/17 19:10 30 mg ONCE STA Administration Morphine Sulfate 2 mg 04/01/17 19:09 04/01/17 19:46 Morphine 2 Mg/Ml Syringe IVP 04/01/17 19:10 2 mg ONCE STA Administration Ondansetron HCl 4 mg 04/01/17 19:09 04/01/17 19:44 Zofran 4 Mg/2 Ml IVP 04/01/17 19:10 4 mg ONCE STA Administration Vital Signs: Temp Pulse Resp BP Pulse Ox 04/01/17 21:08 72 16 148/97 H 100 04/01/17 18:59 97.6 F 83 16 167/103 H 99 ELIOT Risk Score ELIOT Risk Score: Risk Score Odds of by 30D 0 0.1 (0.1-0.2) 1 0.3 (0.2-0.3) 2 0.4 (0.3-0.5) 3 0.7 (0.6-0.9) 4 1.2 (1.0-1.5) 5 2.2 (1.9-2.6) 6 3.0 (2.5-3.6) 7 4.8 (3.8-6.1) Departure - Departure Time of Disposition: 21:11 Disposition: ADMITTED INPATIENT Discharge Problem: Hypokalemia Condition: Good Pt referred to PMD for follow-up: Yes IPMP verified?: No Allergies/Adverse Reactions: Allergies Penicillins Adverse Reaction (Verified 04/01/17 19:12) Sulfa (Sulfonamide Antibiotics) Adverse Reaction (Verified 04/01/17 19:12) sulfamethoxazole [From Bactrim] Adverse Reaction (Verified 04/01/17 19:12) trimethoprim [From Bactrim] Adverse Reaction (Verified 04/01/17 19:12) Transfer Form Completed: No Disposition Discussed With: Patient, Family
[2017-04-01 22:29] VITALS: BMI 31.8
[2017-04-02] MEDS ORDERED: MORPHINE 2 MG/ML SYRINGE ONE (00:22)
[2017-04-02] MEDS: ZOFRAN 4 MG/2 ML IVP PRN ×2 (00:27→19:30)
[2017-04-02] MEDS ORDERED: MORPHINE 2 MG/ML SYRINGE IVP PRN ×2 (00:31→00:32)
[2017-04-02] MEDS ORDERED: POTASSIUM CHLORIDE PREMIX RUN 200 ML IV ONE (01:31)
[2017-04-02] MEDS ORDERED: NON-FORMULARY MEDICATION (Lisinopril [Lisinopril] 20 MG) PO SCH (09:00)
[2017-04-02] MEDS: ZESTRIL PO SCH (10:53)
[2017-04-02] MEDS ORDERED: TORADOL IVP STA (14:29)
[2017-04-03] MEDS: ZESTRIL PO SCH (08:17)
[2017-04-03 10:25] VITALS: BP 133/87; TEMP 97.1
[2017-04-03] MEDS ORDERED: GI COCKTAIL PO STA (12:06)
[2017-04-03] MEDS ORDERED: PROTONIX PO SCH (12:30)
--- NOTE | 2017-04-08 11:11 | HP ---
DATE OF SERVICE: 04/01/17 CHIEF COMPLAINT: Midsternal chest pain, left arm pain into the left chest. HISTORY OF PRESENT ILLNESS: The pain got better for a while and then came back. The patient was worried and came to the emergency room and seen by Dr. Rosa in the emergency room. The patient's white count was normal. EKG normal sinus. Potassium was 2.8, amylase 158, lipase 151. At that time, the patient was admitted to the hospital for the chest pain and severe hypokalemia and slightly elevated amylase and lipase. CT of the chest was negative. The patient was admitted to the hospital for the replacement of the potassium. REVIEW OF SYSTEMS: CONSTITUTIONAL: Weakness, tiredness. No fever, no chills. HEENT: Normal. ENDOCRINE: No weight gain; no weight loss. CVS: Chest pain. No PND, no orthopnea. No shortness of breath. No PND, no orthopnea. RESPIRATORY: No cough, no congestion. No hemoptysis. GI: No nausea, no vomiting. Epigastric pain. No melena. : No hematuria. No polyuria. MUSCULOSKELETAL: No joint swelling. Muscle cramps. PSYCHIATRIC: Not anxious. No depression. No suicidal thoughts. No homicidal thoughts. SKIN: Intact, no open lesions. PAST MEDICAL HISTORY: History of angina and chest pain in 2016 and 2018 Palpitations Hypertension Headaches Anxiety PAST SURGICAL HISTORY: Hysterectomy Tubal ligation Breast surgery-lumpectomy on the right side PERSONAL HISTORY: Does not smoke or drink alcohol. Working. FAMILY HISTORY: Significant for thyroid disease and leukemia. MEDICATIONS: Lisinopril 20 mg p.o. daily. ALLERGIES: Penicillin, sulfa and Trimethoprim. PHYSICAL EXAMINATION: GENERAL: Weakness, tiredness. V/S: Blood pressure 144/88, respiratory rate 16, heart rate 66, temperature 97.2 and saturations 99 on room air. HEENT: Atraumatic, normocephalic. No scleral icterus. Pallor . Mucosa . NECK: Supple. No JVD, no bruit. No lymphadenopathy. No thyromegaly. HEART: S1, S2 normal. No murmur. Midsternal chest pain. No cyanosis or clubbing. No ascites. LUNGS: Clear to auscultation. No rales or rhonchi. ABDOMEN: Epigastric pain. Bowel sounds are active. No CVA tenderness. No rigidity or guarding. EXTREMITIES: No pedal edema. No cyanosis or clubbing MUSCULOSKELETAL: Normal joints, no swelling. Muscle cramping. NEUROLOGIC: Normal. SKIN: Intact; no open lesions. LYMPHATIC: No lymph nodes palpable. LABS: Sodium 136, potassium 2.8, chloride 104, bicarb 26, BUN 8.8, creatinine 0.84, white count 5.4, hemoglobin 12.7, hematocrit 38.6, platelet count 267. ASSESSMENT: 1. SEVERE HYPOKALEMIA 2. CHEST PAIN, MIDSTERNAL, NONSPECIFIC 3. HYPERTENSION PLAN: 1. Admit the patient to the regular floor. 2. CBC, CMP today and daily. 3. Cardiac enzymes and Troponins. 4. Zantac and Carafate. 5. IV fluids. 6. Replace the potassium. 7. Daily I & O's. 8. Morphine for pain. 9. Toradol for pain prn. TIME SPENT: MORE THAN 75 minutes MTDD
--- NOTE | 2017-04-08 11:21 | PN ---
DATE OF SERVICE: 04/02/17 SUBJECTIVE: The potassium with the replacement came up to 4.1. Magnesium was 2.2. No more chest pain. Hurting all over the body, mostly in the arms and the legs. Otherwise, no fever or chills. She was able to tolerate the food fine. She did not have any complications. No nausea or vomiting. No abdominal pain. She had some epigastric pain. REVIEW OF SYSTEMS: CONSTITUTIONAL: No fever, no chills. HEENT: Normal. ENDOCRINE: No weight gain, no weight loss. CVS: No angina symptoms. No CHF symptoms. No palpitations. No atypical chest pain for CAD. No shortness of breath. No PND, no orthopnea. RESPIRATORY: No cough, no hemoptysis. GI: No nausea, no vomiting. Epigastric pain. : No hematuria. No polyuria. MUSCULOSKELETAL: No joint swelling. Hurting all over, mostly legs and arms. PSYCHIATRIC: Not anxious. No depression. No suicidal thoughts. No homicidal thoughts. SKIN: Intact. No rash. PHYSICAL EXAMINATION: V/S: Blood pressure 110/70, respiratory rate 16, heart rate 85, temperature 97.5 , saturation is 99. HEENT: Normocephalic, atraumatic. Mucosa dry. Pallor positive. No icterus. NECK: Supple. No JVD, no carotid bruit. No lymphadenopathy. LUNGS: Clear to auscultation. No rales or rhonchi. HEART: S1, S2 normal. No S3. No murmur, gallop or regurgitation. ABDOMEN: Epigastric discomfort. Bowel sounds active. No rigidity. No rebound or guarding. No CVA tenderness. EXTREMITIES: No pedal edema. No clubbing or cyanosis MUSCULOSKELETAL: No joint swelling. NEUROLOGIC: Awake, alert, oriented times three. No focal deficit. LYMPHATIC: No lymph nodes palpable. SKIN: Intact. LABS: Sodium 138, potassium 4.1, chloride 110, bicarb 22, BUN 11, creatinine 0.80, white count 4.0, hemoglobin 13.8, hematocrit 42.2, platelet count 230. ASSESSMENT: 1. CHEST PAIN, NONCARDIAC 2. HYPOKALEMIA, WHICH IS BETTER 3. ELEVATED AMYLASE AND LIPASE 4. HYPERTENSION PLAN: 1. Toradol for the pain. 2. Continue Zantac and Carafate, which is helping the patient well. 3. Even though the patient's amylase and lipase is high, the patient does not have any particular signs of the pancreatitis. She is tolerating the food and not been vomiting or nauseous. We are not going to do any of these managements at this time. 4. Continue with the regular diet. 5. Will follow up with the patient in the morning. TIME SPENT: More than 35 minutes MTDD
--- NOTE | 2017-04-08 11:32 | DS ---
DATE OF SERVICE: 04/03/17 FINAL DIAGNOSIS: 1. CHEST PAIN, NONCARDIAC 2. EPIGASTRIC PAIN, MOST LIKELY FROM THE PEPTIC ULCER DISEASE 3. GASTROESOPHAGEAL REFLUX DISEASE 4. SEVERE HYPOKALEMIA, WHICH HAS BEEN RESOLVED 5. ELEVATED AMYLASE AND LIPASE PLAN: 1. Discharge the patient home. 2. Resume the Lisinopril, but will start the patient on Zantac 150 mg twice daily and Carafate 1 gram ac and hs. 3. No spicy food and no fried food. 4. Follow up with the [facility] with Dr. Blankenship on April 05. 5. Diet: Cardiac and healthy. 6. Activity: As much as tolerated. DISEASE SPECIFIC EDUCATION: About the hypokalemia, muscle cramps and chest pain were discussed. HOSPITAL COURSE: Gely Munguia, who is a 41 year old female, came to the emergency room with epigastric pain, chest pain radiating to the left arm. EKG was normal sinus rhythm. Labs showed the potassium of 2.8 and mildly elevated amylase and lipase of 152 and 151. At that time, the patient was admitted to the hospital and started on the IV potassium, Carafate and Zantac was given, but the patient was hurting all over the body. Toradol was given, which did help her. She didn't have any problems. As the patient's pain is noncardiac and nonsignificant and no EKG changes, the patient did not do any aggressive management on the chest pain. Once the potassium was replaced, the patient is up and about walking and did not have any problems. At that time, the patient is being discharged to home. TIME SPENT: MORE THAN 65 MINUTES MTDD
== END 2017-04-03 14:05 | disposition home or self-care (01) | DRG 313 ==
LOC: ED 18:57 → MEDSURG B 21:20
PROVIDERS: ADMIT Emergency Medicine; ATTEND Emergency Medicine
DX: R07.89 Other chest pain (principal); R10.13 Epigastric pain; E87.6 Hypokalemia; I10 Essential (primary) hypertension; K27.9 Peptic ulcer, site unspecified, unspecified as acute or chronic, without hemorrhage or perforation; K21.9 Gastro-esophageal reflux disease without esophagitis; R74.8 Abnormal levels of other serum enzymes; Z79.899 Other long term (current) drug therapy
CPT/HCPCS: 36415; 80053; 82150; 82550; 82553; 83690; 83735; 84132; 84439; 84443; 84484; 85025; 93005; 93010; 96365; 96375; 99284

== ENCOUNTER 2017-04-05 14:23 | Outpatient (CLI) | END 2017-04-05 14:24 | disposition home or self-care (01) | LOC: LAB 14:23 | PROVIDERS: ATTEND Emergency Medicine | DX: E87.6 Hypokalemia (principal); R10.84 Generalized abdominal pain; E78.5 Hyperlipidemia, unspecified; R00.2 Palpitations | CPT/HCPCS: 36415; 80053; 82150; 83690; 84436; 84443; 84479 ==

== ENCOUNTER 2017-04-06 20:56 | Emergency (ER) ==
[2017-04-06 21:05] VITALS: BP 139/85; TEMP 98; BMI 33.5
--- NOTE | 2017-04-06 21:56 | ED.PDOC ---
General ED Provider: Dr. ZAMZAM SANTANA-ER Chief Complaint: Palpitations Stated Complaint: [place] had palpitations Time Seen by Physician: 20:55 Mode of Arrival: Walk-In Information Source: Patient Exam Limitations: No limitations Primary Care Provider: [facility] Nursing and Triage Documentation Reviewed and Agree: Yes Reviewed sepsis parameters & appropriate labs ordered?: Yes System Inflammatory Response Syndrome: Not Applicable Sepsis Protocol: For patient's 13 years and over: Temp is 96.8 and below OR 101 and greater Pulse >90 BPM Resp >20/minute Acutely Altered Mental Status Are patient's symptoms suggestive of a new infection, such as: -Pneumonia -Skin, Soft Tissue -Endocarditis -UTI -Bone, Joint Infection -Implantable Device -Acute Abdominal Infection -Wound Infection -Meningitis -Blood Stream Catheter Infection -Unknown Cardiovascular Complaint Exam - Palpitations Complaint/Exam Onset/Duration: 24hrs Symptoms Are: Still present Timing: Intermittent Initial Severity: Mild Current Severity: Moderate Character: Reports: Fast, Skipped beats Aggravating: Reports: None Alleviating: Reports: None Associated Signs and Symptoms: Denies: Lightheadedness, Dizziness, Syncope, Chest pain, Shortness of breath, Diaphoresis, Nausea, Vomiting Related History: Similar episode Atrial Fibrillation Risk Factors: Reports: Hypertension Thyroid Exam: Normal Quality Indicator For Non-Traumatic Chest Pain/Syncope: EKG Performed Review of Systems - Review Of Systems Constitutional: Reports: No symptoms Eyes: Reports: No symptoms Ears, Nose, Mouth, Throat: Reports: No symptoms Respiratory: Reports: No symptoms Cardiac: Reports: Palpitations GI: Reports: No symptoms : Reports: No symptoms Musculoskeletal: Reports: No symptoms Skin: Reports: No symptoms Neurological: Reports: No symptoms Endocrine: Reports: No symptoms Hematologic/Lymphatic: Reports: No symptoms All Other Systems: Reviewed and Negative Past Medical History - Past Medical History Previously Healthy: Yes Endocrine: Reports: None, Dyslipidemia Cardiovascular: Reports: Hypertension Respiratory: Reports: None Hematological: Reports: Anemia Gastrointestinal: Reports: None Genitourinary: Reports: None Neuro/Psych: Reports: Migraine Musculoskeletal: Reports: None Cancer: Reports: None Last Menstrual Period: na Other Pertinent Past Medical History: . - Surgical History General Surgical History: Reports: Other (lump removed from right breast 1995) - Family History Family History: Reports: Unknown - Social History Smoking Status: Current every day smoker, Light tobacco smoker Hx Substance Use: No Alcohol Screening: None - Immunizations Tetanus Shot up to Date: Yes Physical Exam - Physical Exam Appearance: Well-appearing, No pain distress, Well-nourished Eyes: BELINDA, EOMI, Conjunctiva clear ENT: Ears normal, Nose normal, Oropharynx normal Neck: Supple Respiratory: Airway patent, Breath sounds clear, Breath sounds equal, Respirations nonlabored Cardiovascular: RRR, Pulses normal, No rub, No murmur GI/: Soft, Nontender, No masses, Bowel sounds normal, No Organomegaly Musculoskeletal: Normal strength Skin: Warm, Dry, Normal color Neurological: Sensation intact, Motor intact, Reflexes intact, Cranial nerves intact, Alert, Oriented Psychiatric: Affect appropriate, Mood appropriate Re-Evaluation - Re-Evaluation Time of Re-Evaluation: 22:39 Status: Improved Vital Signs Stable: Yes Pain Level: 0 Appearance: NAD Lungs: Clear Skin: Warm and Dry Neuro: Alert and Oriented X3 CV: RRR Critical Care Note - Critical Care Note Total Time (mins): 0 Course - Course Hematology/Chemistry: 04/06/17 21:45 04/06/17 21:45 Orders, Labs, Meds: Lab Review 04/06/17 04/06/17 04/06/17 21:45 21:45 21:45 WBC 6.02 RBC 4.76 Hgb 13.8 Hct 42.2 MCV 88.7 MCH 29.0 MCHC 32.7 RDW Coeff of Asim 13.2 Plt Count 270 Immature Gran % (Auto) 0.2 Neut % (Auto) 50.3 Lymph % (Auto) 39.2 [place] % (Auto) 6.5 Eos % (Auto) 2.8 Baso % (Auto) 1.0 Immature Gran # (Auto) 0.0 Neut # 3.0 Lymph # 2.4 [place] # 0.4 Eos # 0.2 Baso # 0.1 Sodium 141 Potassium 3.4 L Chloride 106 Carbon Dioxide 25 Anion Gap 13.4 BUN 6 L Creatinine 0.89 Estimated GFR (MDRD) 85.00 BUN/Creatinine Ratio 6.74 Glucose 75 Calcium 9.4 Total Bilirubin 0.3 AST 20 ALT 17 Alkaline Phosphatase 98 Total Creatine Kinase CK-MB (CK-2) CK-MB (CK-2) % Troponin I Total Protein 8.0 Albumin 3.8 Globulin 4.2 Albumin/Globulin Ratio 0.90 TSH 5.246 H Serum , Qual Negative 04/06/17 21:45 WBC RBC Hgb Hct MCV MCH MCHC RDW Coeff of Asim Plt Count Immature Gran % (Auto) Neut % (Auto) Lymph % (Auto) [place] % (Auto) Eos % (Auto) Baso % (Auto) Immature Gran # (Auto) Neut # Lymph # [place] # Eos # Baso # Sodium Potassium Chloride Carbon Dioxide Anion Gap BUN Creatinine Estimated GFR (MDRD) BUN/Creatinine Ratio Glucose Calcium Total Bilirubin AST ALT Alkaline Phosphatase Total Creatine Kinase 123 CK-MB (CK-2) 0.7 CK-MB (CK-2) % 0.85986 Troponin I < 0.0100 Total Protein Albumin Globulin Albumin/Globulin Ratio TSH Serum , Qual Orders Category Date Time Status EKG-(ED ONLY) Stat CARDIO 04/06/17 20:59 Completed Roundhouse Worker [ED UNIVERSITY RELATIONS DIRECTOR APPLIED] .ONCE EMERGENCY 04/06/17 21:00 Active CBC W/ AUTO DIFF Stat LAB 04/06/17 21:45 Completed COMPREHENSIVE METABOLIC PANEL Stat LAB 04/06/17 21:45 Completed CREATINE KINASE Stat LAB 04/06/17 21:45 Completed SERUM Stat LAB 04/06/17 21:45 Completed TROPONIN I Stat LAB 04/06/17 21:45 Completed TSH [THYROID STIMULATING HORMONE] Stat LAB 04/06/17 21:45 Completed Vital Signs: Temp Pulse Resp BP Pulse Ox 04/06/17 20:58 98 F 88 20 139/85 98 ELIOT Risk Score ELIOT Risk Score: Risk Score Odds of by 30D 0 0.1 (0.1-0.2) 1 0.3 (0.2-0.3) 2 0.4 (0.3-0.5) 3 0.7 (0.6-0.9) 4 1.2 (1.0-1.5) 5 2.2 (1.9-2.6) 6 3.0 (2.5-3.6) 7 4.8 (3.8-6.1) Departure - Departure Time of Disposition: 22:40 Disposition: HOME SELF-CARE Discharge Problem: Hypokalemia Instructions: Hypokalemia (ED) Condition: Good Pt referred to PMD for follow-up: Yes IPMP verified?: No Additional Instructions: w/u with dr goodrich this week and get potassium rechecked Allergies/Adverse Reactions: Allergies Penicillins Adverse Reaction (Verified 04/01/17 19:12) Sulfa (Sulfonamide Antibiotics) Adverse Reaction (Verified 04/01/17 19:12) sulfamethoxazole [From Bactrim] Adverse Reaction (Verified 04/01/17 19:12) trimethoprim [From Bactrim] Adverse Reaction (Verified 04/01/17 19:12) Home Medications: Ambulatory Orders Ranitidine HCl [Zantac] 150 mg PO BID 30 Days #60 tablet 04/03/17 Sucralfate [Carafate] 1 gm PO ACHS 30 Days #120 tablet 04/03/17 Disposition Discussed With: Patient
[2017-04-06] MEDS ORDERED: K-DUR PO STA (22:39)
== END 2017-04-06 23:04 | disposition home or self-care (01) ==
LOC: ED 20:56
DX: E87.6 Hypokalemia (principal); R00.2 Palpitations; I10 Essential (primary) hypertension; E78.5 Hyperlipidemia, unspecified; F17.210 Nicotine dependence, cigarettes, uncomplicated
CPT/HCPCS: 36415; 80053; 82550; 82553; 84443; 84484; 84703; 85025; 93005; 93010; 99283

== ENCOUNTER 2017-04-08 08:45 | Outpatient (CLI) ==
--- NOTE | 2017-04-11 09:27 | HOLTER ---
PATIENT INFORMATION AND COMMENTS Attending Physician: ANGEL LEMON Indications: PALPITATIONS __ Patient Medications: LISINOPRIL __ Pre-procedure Summary: Protocol: Standard Heart Rate Started: 04/08/17905 Minimum: 51 BPM Weight: 189 LBS Ended: 04/09/17905 Maximum: 132 BPM Height: 63" Duration: 24 HOURS Average: 85 BPM _ INTERPRETATIONS/OBSERVATIONS: 1. BASIC RHYTHM: SINUSE, RATE 50 BPM TO 130 BPM, AVERAGE 85 BPM 2. RARE PAC'S AND PVC'S 3. NO ST-T WAVE CHANGES FROM BASELINE 4. NO CORRELATION WITH ACTIVITY LOG MTDD
== END 2017-04-08 08:46 | disposition home or self-care (01) ==
LOC: CAR 08:45
PROVIDERS: ATTEND Emergency Medicine
DX: E87.6 Hypokalemia (principal); R00.2 Palpitations; I10 Essential (primary) hypertension
CPT/HCPCS: 36415; 80053; 83735; 93227

== ENCOUNTER 2017-05-04 12:40 | Outpatient (CLI) | END 2017-05-04 12:41 | disposition home or self-care (01) | LOC: LAB 12:40 | PROVIDERS: ATTEND Emergency Medicine | DX: E78.5 Hyperlipidemia, unspecified (principal); E87.6 Hypokalemia; I10 Essential (primary) hypertension | CPT/HCPCS: 36415; 80053; 83735; 85651 ==

== ENCOUNTER 2017-07-10 19:55 | Emergency (ER) ==
[2017-07-10 20:07] VITALS: BP 147/85; TEMP 98; BMI 33.1
[2017-07-10] MEDS ORDERED: DEXTROSE 50%-WATER ABBOJECT IVP STA (20:59)
--- NOTE | 2017-07-10 21:35 | ED.PDOC ---
General ED Provider: Dr. ZAMZAM SANTANA-ER Chief Complaint: Non-specific Complaint Stated Complaint: i feel shaky, nauseated and my arms and legs hurt--i am worried about my potassium Time Seen by Physician: 20:00 Mode of Arrival: Walk-In Information Source: Patient Exam Limitations: No limitations Primary [facility] Nursing and Triage Documentation Reviewed and Agree: Yes Reviewed sepsis parameters & appropriate labs ordered?: Yes System Inflammatory Response Syndrome: Not Applicable Sepsis Protocol: For patient's 13 years and over: Temp is 96.8 and below OR 101 and greater Pulse >90 BPM Resp >20/minute Acutely Altered Mental Status Are patient's symptoms suggestive of a new infection, such as: -Pneumonia -Skin, Soft Tissue -Endocarditis -UTI -Bone, Joint Infection -Implantable Device -Acute Abdominal Infection -Wound Infection -Meningitis -Blood Stream Catheter Infection -Unknown GI Complaint Exam - Vomiting/Diarrhea Complaint/Exam Onset/Duration: today Symptoms Are: Still present Initial Severity: Mild Current Severity: Mild Aggravating: Reports: None Alleviating: Reports: None Associated Signs and Symptoms: Reports: Dizziness Recent Positive Test: No Use of Oral Contraceptives: No Use of Depoprovera: No Compliant With Contraceptive Use: No Non-GI Risk Factors: Reports: None Surgical Obstruction Risk Factors: Reports: None Abdominal Findings: Present: None Kuss[place]ul Respirations Present: No Differential Diagnoses: Other Review of Systems - Review Of Systems Constitutional: Reports: Weakness, Sweats Eyes: Reports: No symptoms Ears, Nose, Mouth, Throat: Reports: No symptoms Respiratory: Reports: No symptoms Cardiac: Reports: No symptoms GI: Reports: Nausea : Reports: No symptoms Musculoskeletal: Reports: Muscle pain Skin: Reports: No symptoms Neurological: Reports: No symptoms Endocrine: Reports: No symptoms Hematologic/Lymphatic: Reports: No symptoms All Other Systems: Reviewed and Negative Past Medical History - Past Medical History Previously Healthy: Yes Endocrine: Reports: None, Dyslipidemia Cardiovascular: Reports: Hypertension Respiratory: Reports: None Hematological: Reports: Anemia Gastrointestinal: Reports: None Genitourinary: Reports: None Neuro/Psych: Reports: Migraine Musculoskeletal: Reports: None Cancer: Reports: None Last Menstrual Period: 2011 Other Pertinent Past Medical History: . - Surgical History General Surgical History: Reports: Other (lump removed from right breast 1995) - Family History Family History: Reports: Unknown - Social History Smoking Status: Current every day smoker, Light tobacco smoker Hx Substance Use: No Alcohol Screening: None - Immunizations Tetanus Shot up to Date: Yes Physical Exam - Physical Exam Appearance: Well-appearing, No pain distress, Well-nourished Eyes: BELINDA, EOMI, Conjunctiva clear ENT: Ears normal Neck: Supple Respiratory: Airway patent, Breath sounds clear, Breath sounds equal, Respirations nonlabored Cardiovascular: RRR, Pulses normal, No rub, No murmur GI/: Soft, Nontender, No masses, Bowel sounds normal, No Organomegaly Musculoskeletal: Normal strength, ROM intact, No edema, No calf tenderness Skin: Warm, Dry, Normal color Neurological: Sensation intact, Motor intact, Reflexes intact, Cranial nerves intact, Alert, Oriented Psychiatric: Affect appropriate, Mood appropriate, Anxious Re-Evaluation - Re-Evaluation Time of Re-Evaluation: 21:35 Status: Improved (fsbs 165--symptoms resolved) Vital Signs Stable: Yes Pain Level: 0 Appearance: NAD Lungs: Clear Skin: Warm and Dry Neuro: Alert and Oriented X3 CV: RRR Critical Care Note - Critical Care Note Total Time (mins): 0 Course - Course Hematology/Chemistry: 07/10/17 20:25 07/10/17 20:25 Orders, Labs, Meds: Lab Review 07/10/17 07/10/17 07/10/17 20:25 20:25 20:25 WBC 6.08 RBC 4.64 Hgb 13.2 Hct 41.3 MCV 89.0 MCH 28.4 MCHC 32.0 RDW Coeff of Asim 13.2 Plt Count 210 Immature Gran % (Auto) 0.2 Neut % (Auto) 54.4 Lymph % (Auto) 36.2 [place] % (Auto) 5.3 Eos % (Auto) 3.1 Baso % (Auto) 0.8 Immature Gran # (Auto) 0.0 Neut # (Auto) 3.3 Lymph # (Auto) 2.2 [place] # (Auto) 0.3 L Eos # (Auto) 0.2 Baso # (Auto) 0.1 Sodium 141 Potassium 3.7 Chloride 106 Carbon Dioxide 23 Anion Gap 15.7 BUN 9 Creatinine 0.86 Estimated GFR (MDRD) 88.00 BUN/Creatinine Ratio 10.46 Glucose 67 L Calcium 9.4 Magnesium 2.5 H Total Bilirubin 0.3 AST 16 ALT 20 Alkaline Phosphatase 96 Total Protein 7.3 Albumin 3.7 Globulin 3.6 Albumin/Globulin Ratio 1.03 Orders Category Date Time Status EKG-(ED ONLY) Stat CARDIO 07/10/17 20:06 Ordered ACCUCHECK (ED) [ED ACCUCHECK ASSESSMENT] .ONCE EMERGENCY 07/10/17 21:30 Active Dog Obedience Instructor [ED PARCEL POST ORDER CLERK APPLIED] .ONCE EMERGENCY 07/10/17 20:07 Active IV [ED IV/MEDIPORT/POWERPORT] .ONCE EMERGENCY 07/10/17 20:58 Active CBC W/ AUTO DIFF Stat LAB 07/10/17 20:25 Completed COMPREHENSIVE METABOLIC PANEL Stat LAB 07/10/17 20:25 Completed CREATINE KINASE Stat LAB 07/10/17 20:25 Received MAGNESIUM Stat LAB 07/10/17 20:25 Completed TROPONIN I Stat LAB 07/10/17 20:25 Received 0.9 % Sodium Chloride [Saline Flush] MEDS 07/10/17 20:58 Ordered 1 syr IVF PRN PRN Dextrose 50 % in Water [Dextrose 50%-Water Abboject] MEDS 07/10/17 20:59 Discontinued 50 ml IVP ONCE STA Medications Generic Name Dose Route Start Last Admin Trade Name Freq PRN Reason Stop Dose Admin Sodium Chloride 1 syr 07/10/17 20:58 07/10/17 21:21 Saline Flush IVF 1 syr PRN PRN Administration To flush IV Discontinued Medications Generic Name Dose Route Start Last Admin Trade Name Freq PRN Reason Stop Dose Admin Dextrose 50 ml 07/10/17 20:59 07/10/17 21:12 Dextrose 50%-Water Abboject IVP 07/10/17 21:00 50 ml ONCE STA Administration Vital Signs: Temp Pulse Resp BP Pulse Ox 07/10/17 19:56 98 F 85 20 147/85 H 99 Departure - Departure Time of Disposition: 21:35 Disposition: HOME SELF-CARE Discharge Problem: Hypoglycemia Instructions: Non-diabetic Hypoglycemia (ED) Condition: Good Pt referred to PMD for follow-up: Yes IPMP verified?: No Additional Instructions: eat 5-6 small frequent meals--avoid simple carbohydrates and sweets--talk to your pcp about dietary referral-- Allergies/Adverse Reactions: Allergies Penicillins Adverse Reaction (Verified 07/10/17 20:01) Sulfa (Sulfonamide Antibiotics) Adverse Reaction (Verified 07/10/17 20:01) sulfamethoxazole [From Bactrim] Adverse Reaction (Verified 07/10/17 20:01) trimethoprim [From Bactrim] Adverse Reaction (Verified 07/10/17 20:01) Disposition Discussed With: Patient
== END 2017-07-10 21:44 | disposition home or self-care (01) ==
LOC: ED 19:55
DX: E16.2 Hypoglycemia, unspecified (principal); R42 Dizziness and giddiness; E78.5 Hyperlipidemia, unspecified; I10 Essential (primary) hypertension; F17.210 Nicotine dependence, cigarettes, uncomplicated
CPT/HCPCS: 36415; 80053; 82550; 82553; 82962; 83735; 84484; 85025; 93005; 93010; 96374; 99283

== ENCOUNTER 2017-09-20 19:41 | Emergency (ER) ==
[2017-09-20 19:51] VITALS: TEMP 98; BMI 34.3
[2017-09-20 20:11] VITALS: BP 135/82
--- NOTE | 2017-09-20 20:13 | ED.PDOC ---
General ED Provider: Dr. ZAMZAM SANTANA-ER Chief Complaint: Weakness Stated Complaint: my muscles are weak and cramping--car[place]ina been working a lot of hours Time Seen by Physician: 19:45 Mode of Arrival: Walk-In Information Source: Patient Exam Limitations: No limitations Primary Care Provider: GERHARD [facility] Nursing and Triage Documentation Reviewed and Agree: Yes Does patient meet sepsis criteria?: No System Inflammatory Response Syndrome: Not Applicable Sepsis Protocol: For patient's 13 years and over: Temp is 96.8 and below OR 101 and greater Pulse >90 BPM Resp >20/minute Acutely Altered Mental Status Are patient's symptoms suggestive of a new infection, such as: -Pneumonia -Skin, Soft Tissue -Endocarditis -UTI -Bone, Joint Infection -Implantable Device -Acute Abdominal Infection -Wound Infection -Meningitis -Blood Stream Catheter Infection -Unknown Musculoskeletal Complaint Exam - Upper Extremity Complaint/Exam Location of Pain: Reports: Arm Mechanism of Injury: Reports: No known trauma Onset/Duration: several hours Symptoms Are: Still present Timing: Intermittent Episodes Lasting: Minutes Initial Severity: Mild Current Severity: Mild Location: Reports: Diffuse Character: Reports: Dull Aggravating: Reports: None Alleviating: Reports: None Non-Orthopedic Risk Factors: Reports: None NV Bundle Intact Distal to Injury: Yes Compartment Syndrome Risk Factors: Present: Pain Differential Diagnoses: Other Review of Systems - Review Of Systems Constitutional: Reports: No symptoms Eyes: Reports: No symptoms Ears, Nose, Mouth, Throat: Reports: No symptoms Respiratory: Reports: No symptoms Cardiac: Reports: No symptoms GI: Reports: No symptoms : Reports: No symptoms Musculoskeletal: Reports: Muscle pain, Muscle stiffness Skin: Reports: No symptoms Neurological: Reports: No symptoms Endocrine: Reports: No symptoms Hematologic/Lymphatic: Reports: No symptoms All Other Systems: Reviewed and Negative Past Medical History - Past Medical History Previously Healthy: Yes Endocrine: Reports: None, Dyslipidemia Cardiovascular: Reports: Hypertension Respiratory: Reports: None Hematological: Reports: Anemia Gastrointestinal: Reports: None Genitourinary: Reports: None Neuro/Psych: Reports: Migraine Musculoskeletal: Reports: None Cancer: Reports: None Last Menstrual Period: na Other Pertinent Past Medical History: . - Surgical History General Surgical History: Reports: Other (lump removed from right breast 1995) - Family History Family History: Reports: Unknown - Social History Smoking Status: Current every day smoker, Light tobacco smoker Hx Substance Use: No Alcohol Screening: None - Immunizations Tetanus Shot up to Date: Yes Physical Exam - Physical Exam Appearance: Well-appearing, No pain distress, Well-nourished Eyes: BELINDA ENT: Ears normal, Nose normal, Oropharynx normal Neck: Supple Respiratory: Airway patent, Breath sounds clear, Breath sounds equal, Respirations nonlabored Cardiovascular: RRR, Pulses normal, No rub, No murmur GI/: Soft, Nontender, No masses, Bowel sounds normal, No Organomegaly Musculoskeletal: Limited ROM Skin: Warm Neurological: Sensation intact Psychiatric: Affect appropriate, Mood appropriate Critical Care Note - Critical Care Note Total Time (mins): 0 Course - Course Hematology/Chemistry: 09/20/17 19:50 09/20/17 19:50 Orders, Labs, Meds: Lab Review 09/20/17 09/20/17 09/20/17 19:50 19:50 19:58 WBC 5.67 RBC 4.83 Hgb 13.8 Hct 42.4 MCV 87.8 MCH 28.6 MCHC 32.5 RDW Coeff of Asim 13.1 Plt Count 287 Immature Gran % (Auto) 0.2 Neut % (Auto) 48.5 Lymph % (Auto) 41.8 [place] % (Auto) 4.9 Eos % (Auto) 3.5 Baso % (Auto) 1.1 Immature Gran # (Auto) 0.0 Neut # (Auto) 2.8 Lymph # (Auto) 2.4 [place] # (Auto) 0.3 L Eos # (Auto) 0.2 Baso # (Auto) 0.1 Sodium 140 Potassium 3.5 Chloride 103 Carbon Dioxide 25 Anion Gap 15.5 BUN 6 L Creatinine 0.92 Estimated GFR (MDRD) 81.00 BUN/Creatinine Ratio 6.52 Glucose 72 Calcium 9.6 Total Bilirubin 0.4 AST 19 ALT 19 Alkaline Phosphatase 94 Total Creatine Kinase 211 CK-MB (CK-2) 0.8 CK-MB (CK-2) % 0.07416 Troponin I < 0.0100 Total Protein 8.2 Albumin 3.9 Globulin 4.3 Albumin/Globulin Ratio 0.91 TSH 1.448 Urine Color Yellow Urine Clarity Clear Urine pH 7.0 Ur Specific [place] 1.010 Urine Protein Negative Urine Glucose (UA) Negative Urine Ketones Negative Urine Blood Negative Urine Nitrite Negative Urine Bilirubin Negative Urine Urobilinogen 0.2 Ur Leukocyte Esterase Negative Orders Category Date Time Status EKG-(ED ONLY) Stat CARDIO 09/20/17 19:[address] MESSENGER APPLIED .ONCE EMERGENCY 09/20/17 19:44 Active IV [ED IV/MEDIPORT/POWERPORT] .ONCE EMERGENCY 09/20/17 19:44 Active CBC W/ AUTO DIFF Stat LAB 09/20/17 19:50 Completed COMPREHENSIVE METABOLIC PANEL Stat LAB 09/20/17 19:50 Completed CREATINE KINASE Stat LAB 09/20/17 19:50 Completed THYROID STIMULATING HORMONE Stat LAB 09/20/17 19:50 Completed TROPONIN I Stat LAB 09/20/17 19:50 Completed URINALYSIS C & S IF INDICATED Stat LAB 09/20/17 19:58 Completed 0.9 % Sodium Chloride [Saline Flush] MEDS 09/20/17 19:44 Ordered 1 syr IVF PRN PRN Medications Generic Name Dose Route Start Last Admin Trade Name Freq PRN Reason Stop Dose Admin Sodium Chloride 1 syr 09/20/17 19:44 Saline Flush IVF PRN PRN To flush IV Vital Signs: Temp Pulse Resp BP Pulse Ox 09/20/17 20:10 83 17 135/82 96 09/20/17 20:01 138/98 H 09/20/17 19:42 98.0 F 86 20 159/95 H 100 Departure - Departure Time of Disposition: 20:59 Disposition: HOME SELF-CARE Discharge Problem: Muscle weakness Fatigue Qualifiers: Fatigue type: other Qualified Code(s): R53.83 - Other fatigue Instructions: Fatigue (ED) Condition: Good Pt referred to PMD for follow-up: Yes IPMP verified?: No Additional Instructions: rest, fluids--f/u with dr goodrich Allergies/Adverse Reactions: Allergies Penicillins Adverse Reaction (Verified 09/20/17 20:47) Sulfa (Sulfonamide Antibiotics) Adverse Reaction (Verified 09/20/17 20:47) sulfamethoxazole [From Bactrim] Adverse Reaction (Verified 09/20/17 20:47) trimethoprim [From Bactrim] Adverse Reaction (Verified 09/20/17 20:47) Disposition Discussed With: Patient
== END 2017-09-20 21:07 | disposition home or self-care (01) ==
LOC: ED 19:41
DX: R53.83 Other fatigue (principal); R53.1 Weakness; F17.210 Nicotine dependence, cigarettes, uncomplicated
CPT/HCPCS: 36415; 80053; 81001; 82550; 82553; 84443; 84484; 85025; 93005; 93010; 99283

== ENCOUNTER 2017-10-17 15:37 | Observation (INO) ==
[2017-10-17] MEDS ORDERED: TYLENOL PO PRN (16:58)
[2017-10-17 17:30] VITALS: BMI 33.5
--- NOTE | 2017-10-17 17:57 | CT ---
EXAM: CT abdomen pelvis without contrast HISTORY: Right-sided abdominal pain COMPARISON: CT abdomen pelvis 08/[birth year]/1926 cleaned and 02/20/2017 TECHNIQUE: Serial axial images of the abdomen pelvis were performed from the lung bases through the inferior pelvis without contrast. These were viewed in multiple planes. FINDINGS: The lung bases are clear. Evaluation is limited due to lack of contrast. The liver is unremarkable. The gallbladder is normal with no stones or inflammation. The kidneys are unremarkable. Adrenal glands are normal. The sple en is normal. The pancreas is unremarkable. The stomach is minimally distended. The small bowel in the abdomen pelvis is unremarkable. In the c olon in is unremarkable. The appendix is normal. The urinary bladder is distended. There is a round low attenuation soft tissue air in the anterior right pelvis on coronal image 29 and axial image 107 . There is no free air. There is minimal free fluid the pelvis. The osseous structures are unremark able. IMPRESSION: 1. Low attenuation soft tissue in the anterior right pelvis may be ovarian in origin. If further ev aluation is indicated, ultrasound may be obtained. 2. Minimal free fluid in the pelvis.
[2017-10-17] MEDS ORDERED: DEMEROL 50 MG/ML SYRINGE ONE (18:13)
[2017-10-17] MEDS: DEMEROL 100 MG/ML SYRINGE IVP SCH (18:20)
[2017-10-17] MEDS: SODIUM CHLORIDE 1,000 ML IV SCH (18:20)
[2017-10-17] MEDS: ZOFRAN 4 MG/2 ML IVP PRN (18:32)
[2017-10-18] MEDS: DEMEROL 100 MG/ML SYRINGE IVP SCH (01:00)
[2017-10-18] MEDS ORDERED: DEMEROL 50 MG/ML SYRINGE ONE (01:13)
[2017-10-18] MEDS: ZOFRAN 4 MG/2 ML IVP PRN ×2 (02:59→12:19)
[2017-10-18] MEDS ORDERED: DEMEROL 100 MG/ML SYRINGE IVP PRN (07:46)
[2017-10-18] MEDS ORDERED: DEMEROL 50 MG/ML SYRINGE IVP PRN (08:12)
[2017-10-18] MEDS ORDERED: DEMEROL 50 MG/ML SYRINGE IVP SCH (09:00)
[2017-10-18] MEDS ORDERED: ZESTRIL PO SCH (09:00)
[2017-10-18] MEDS: SODIUM CHLORIDE 1,000 ML IV SCH (09:19)
--- NOTE | 2017-10-18 12:33 | US ---
EXAM: Transvaginal pelvic ultrasound. History: Right lower quadrant abdominal pain and right pelvic pain, follow-up CT. Comparison: CT abdomen pelvis 08/2017 Technique: Multiple sonographic images through the pelvis were obtained. Color duplex Doppler was u sed to interrogate vascular flow. Findings: Uterus is not seen and likely has been surgically removed. Small amount of free fluid in t he pelvis. 3.8 cm x 3.3 cm x 3.1 cm mass of the right ovary appears complicated or complex. The lef t ovary is normal in appearance. Blood flow was documented within each ovary. Impression: Right ovarian mass can be benign or malignant. Recommend further evaluation with an MRI of the female pelvis for clarification.
[2017-10-18 14:38] VITALS: BP 127/80; TEMP 97.9
--- NOTE | 2017-10-18 14:48 | CT ---
EXAM: CT of the lumbar spine without contrast History: Right leg numbness. Technique: Multiplanar CT images through the lumbar spine were obtained without the administration o f IV contrast Comparison: CT abdomen pelvis 10/17/2017 Findings: Partially visualized right adnexal cyst as previously described. No acute fracture or subluxation of the lumbar spine. Disc space heights are relatively preserved. Mild degenerative changes of bilateral sacroiliac joints with marginal sclerosis. T12-L1: No significant bony central canal stenosis or bony neural foraminal narrowing. L1-L2: No significant bony central canal stenosis or bony neural foraminal narrowing. L2-L3: No significant bony central canal stenosis or bony neural foraminal narrowing. L3-L4: No significant bony central canal stenosis or bony neural foraminal narrowing. L4-L5: Small disc bulge effacing anterior thecal sac with no significant central canal stenosis. Mi ld to moderate bilateral bony neural foraminal narrowing secondary to ligamentous and facet hypertrop hy. L5-S1: Small disc bulge effacing anterior thecal sac with no significant bony central canal stenosis . Moderate to severe right and moderate left bony neural foraminal narrowing secondary to ligamentou s and facet hypertrophy. Impression: 1. No acute osseous abnormality of the lumbar spine. 2. Level by level analysis as detailed above with moderate to severe right-sided bony neural foramin al narrowing at L5-S1. Consider correlation with lumbar spine MRI.
--- NOTE | 2017-10-18 15:00 | CT ---
EXAM: CT of the head without contrast History: Right leg numbness. Technique: Multiplanar CT images through the head were obtained without the administration of IV cont rast Findings: The visualized paranasal sinuses and mastoid air cells are clear in general. No acute alton varial abnormalities. Intracranially the ventricular and cisternal spaces are normal in size, shape and configuration for a patient of this age. No dominant mass or midline shift. No hydrocephalous. No acute intracranial hemorrhage or abnormal extraaxial fluid collections. Impression: No acute intracranial process. If symptoms persist, consider correlation with brain MRI.
--- NOTE | 2017-10-19 10:31 | PN ---
DATE OF SERVICE: 10/18/17 SUBJECTIVE: The patient was admitted from the office for the severe intractable abdominal pain. Complains of the right lower extremity weakness and tingling, having difficulty to walk. The patient had CT of abdomen and pelvis showed the 3cm mass in the ovary. Abdominal pain is still 8 out of 9 and when she walks it is hurting more. REVIEW OF SYSTEMS: CONSTITUTIONAL: No fever, no chills. HEENT: Normal. ENDOCRINE: No weight gain, no weight loss. CVS: No angina symptoms. No CHF symptoms. No palpitations. No atypical chest pain for CAD. No shortness of breath. No PND, no orthopnea. RESPIRATORY: No cough, no hemoptysis. GI: No nausea, no vomiting. No abdominal pain. : No hematuria. No polyuria. MUSCULOSKELETAL: No joint swelling. PSYCHIATRIC: Not anxious. No depression. No suicidal thoughts. No homicidal thoughts. SKIN: Intact. No rash. PHYSICAL EXAMINATION: V/S: Blood pressure 115/75, respiratory rate 20, heart rate 66, temperature 98.0 and saturation is 99. HEENT: Normocephalic, atraumatic. Mucosa dry. Pallor positive. No icterus. NECK: Supple. No JVD, no carotid bruit. No lymphadenopathy. LUNGS: Clear to auscultation. No rales or rhonchi. HEART: S1, S2 normal. No S3. No murmur, gallop or regurgitation. ABDOMEN: Soft, right lower quadrant tenderness. Bowel sounds sluggish. No rigidity. Guarding. No CVA tenderness. EXTREMITIES: No cyanosis, clubbing or pedal edema. Range of motion in the right hip is decreased. MUSCULOSKELETAL: No joint swelling. NEUROLOGIC: Awake, alert. No focal deficit. LYMPHATIC: No lymph nodes palpable. SKIN: Intact. LABS: WBC 5.26, hgb 12.1, hct 36.7, plt count 237, sodium 139, potassium 3.6, chloride 108, bicarb 24, BUN 7, creatinine 0.79. ASSESSMENT: 1. Intractable right lower quadrant pain mostly from the ovarian cyst/mass 2. Right lower extremity tingling and numbness, rule out stroke 3. Hypertension 4. Dyslipidemia 5. Obesity PLAN: 1. CT lumbar spine 2. Cervical ultrasound 3. Demerol PRN TIME SPENT: More than 35 minutes MTDD
--- NOTE | 2017-11-03 08:36 | DS ---
DATE OF SERVICE: 10/18/17 FINAL DIAGNOSIS: 1. Severe abdominal pain 2. Right sided ovarian cyst 3. DJD spine 4. Lumpectomy right breast 5. Hypertension 6. Hysterectomy 7. Borderline LVH with echocardiogram DISCHARGE INSTRUCTIONS: Discharge the patient home. Followup in the [facility] within 5-7 days. Please followup with OB-ENGINEERING PROGRAM MANAGER, Radha; [facility], November 03. Continue the home medications. MEDICATIONS AT DISCHARGE: Lisinopril Hydrocodone Zofran NEW PRESCRIPTIONS: Mobic 50mg twice a day for 5 days Zofran 4mg every 4 hours PRN DIET INSTRUCTIONS: Cardiac and healthy ACTIVITY: Bed rest DISEASE SPECIFIC EDUCATION: Abdominal pain Ovarian cyst and verbalized understanding. HOSPITAL COURSE: Gely Munguia who is a 42 year old female came to the office with the severe right sided abdominal pain, nausea and intractable belly pains. The patient was admitted to the hospital. CT of abdomen and pelvis showed the right sided ovarian cyst. The patient was given pain medication; Demerol and IV fluids. Pelvic ultrasound was obtained. Right ovarian mass can be benign or malignant. 3.8cmx 3.3cm. The patient was complaining of numbness and tingling in the right lower extremities. CT head done which did not show any acute findings. CT of the lumbar spine done which showed not acute osseous problem. There is a neural foraminal narrowing at L5 and S1, consider correlation with MRI. Up and about and walking. The patient is being discharged home and have followup with OB-ENGINEERING PROGRAM MANAGER for the right ovarian mass. TIME SPENT: MORE THAN 65 MINUTES MTDD
== END 2017-10-18 18:16 | disposition home or self-care (01) ==
LOC: MEDSURG A 15:37
PROVIDERS: ADMIT Emergency Medicine; ATTEND Emergency Medicine
DX: R10.31 Right lower quadrant pain (principal); R53.1 Weakness; I10 Essential (primary) hypertension; E78.5 Hyperlipidemia, unspecified; N83.201 Unspecified ovarian cyst, right side; M47.9 Spondylosis, unspecified
CPT/HCPCS: 36415; 80053; 82150; 83690; 85025

== ENCOUNTER 2018-01-12 19:22 | Emergency (ER) ==
[2018-01-12 19:26] VITALS: BP 137/89; TEMP 98.3; BMI 32.2
--- NOTE | 2018-01-12 21:28 | ED.PDOC ---
General ED Provider: Dr. FUNMILAYO ZARATE Chief Complaint: Non-specific Complaint Stated Complaint: muscle cramps and foggyness for few days. Previously had low potassium with similar symptoms. Time Seen by Physician: 20:30 Mode of Arrival: Walk-In Information Source: Patient Exam Limitations: No limitations Primary Care Provider: [facility] Nursing and Triage Documentation Reviewed and Agree: Yes Does patient meet sepsis criteria?: No System Inflammatory Response Syndrome: Not Applicable Sepsis Protocol: For patient's 13 years and over: Temp is 96.8 and below OR 101 and greater Pulse >90 BPM Resp >20/minute Acutely Altered Mental Status Are patient's symptoms suggestive of a new infection, such as: -Pneumonia -Skin, Soft Tissue -Endocarditis -UTI -Bone, Joint Infection -Implantable Device -Acute Abdominal Infection -Wound Infection -Meningitis -Blood Stream Catheter Infection -Unknown Review of Systems - Review Of Systems Constitutional: Reports: Malaise, Other (muslce cramps, Fogginess ) Eyes: Reports: No symptoms Ears, Nose, Mouth, Throat: Reports: No symptoms Respiratory: Reports: No symptoms Cardiac: Reports: No symptoms GI: Reports: No symptoms : Reports: No symptoms Musculoskeletal: Reports: No symptoms Skin: Reports: No symptoms Neurological: Reports: Anxiety Endocrine: Reports: No symptoms Hematologic/Lymphatic: Reports: No symptoms All Other Systems: Reviewed and Negative Past Medical History - Past Medical History Previously Healthy: Yes Endocrine: Reports: None, Dyslipidemia Cardiovascular: Reports: Hypertension Respiratory: Reports: None Hematological: Reports: Anemia Gastrointestinal: Reports: None Genitourinary: Reports: None Neuro/Psych: Reports: Migraine Musculoskeletal: Reports: None Cancer: Reports: None Last Menstrual Period: ABLATION Other Pertinent Past Medical History: . - Surgical History General Surgical History: Reports: Other (lump removed from right breast 1995) - Family History Family History: Reports: Unknown - Social History Smoking Status: Current every day smoker, Light tobacco smoker Hx Substance Use: No Alcohol Screening: None - Immunizations Tetanus Shot up to Date: Yes Physical Exam - Physical Exam Appearance: Well-appearing, No pain distress, Well-nourished Eyes: BELINDA, EOMI, Conjunctiva clear ENT: Ears normal, Nose normal, Oropharynx normal Respiratory: Airway patent, Breath sounds clear, Breath sounds equal, Respirations nonlabored Cardiovascular: RRR, Pulses normal, No rub, No murmur GI/: Soft, Nontender, No masses, Bowel sounds normal, No Organomegaly Musculoskeletal: Normal strength, ROM intact, No edema, No calf tenderness Skin: Warm, Dry, Normal color Neurological: Sensation intact, Motor intact, Reflexes intact, Cranial nerves intact, Alert, Oriented Psychiatric: Affect appropriate, Mood appropriate Critical Care Note - Critical Care Note Total Time (mins): 0 Course - Course Hematology/Chemistry: 01/12/18 20:20 01/12/18 20:20 Orders, Labs, Meds: Lab Review 01/12/18 01/12/18 20:20 20:20 WBC 6.67 RBC 4.44 Hgb 12.7 Hct 38.6 MCV 86.9 MCH 28.6 MCHC 32.9 RDW Coeff of Asim 13.4 Plt Count 264 Immature Gran % (Auto) 0.1 Neut % (Auto) 54.9 Lymph % (Auto) 36.9 [place] % (Auto) 5.2 Eos % (Auto) 2.5 Baso % (Auto) 0.4 Immature Gran # (Auto) 0.0 Neut # (Auto) 3.7 Lymph # (Auto) 2.5 [place] # (Auto) 0.4 Eos # (Auto) 0.2 Baso # (Auto) 0.0 Sodium 137.5 Potassium 3.70 Chloride 101.5 Carbon Dioxide 31.7 H Anion Gap 8.00 BUN 8.4 Creatinine 0.90 Estimated GFR (MDRD) 83.00 BUN/Creatinine Ratio 9.33 Glucose 79.8 Calcium 9.12 Magnesium 2.15 Total Bilirubin 0.25 AST 19.5 ALT 17.5 Alkaline Phosphatase 88.2 Total Creatine Kinase 117.8 CK-MB (CK-2) < 0.220 CK-MB (CK-2) % 0.1800 Troponin I < 0.012 Total Protein 7.61 Albumin 4.26 Globulin 3.35 Albumin/Globulin Ratio 1.27 Orders Category Date Time Status EKG-(ED ONLY) Stat CARDIO 01/12/18 19:26 Completed CBC W/ AUTO DIFF Stat LAB 01/12/18 20:20 Completed COMPREHENSIVE METABOLIC PANEL Stat LAB 01/12/18 20:20 Completed CREATINE KINASE Stat LAB 01/12/18 20:20 Completed MAGNESIUM Stat LAB 01/12/18 20:20 Completed TROPONIN I Stat LAB 01/12/18 20:20 Completed Oxycodone-Acetaminophen 5-325 [Percocet 5-325] MEDS 01/14/18 08:46 Stat 1 tab PO ONCE STA Vital Signs: Temp Pulse Resp BP Pulse Ox 01/12/18 19:22 98.3 F 99 H 18 137/89 99 Departure - Departure Time of Disposition: 21:30 Disposition: HOME SELF-CARE Discharge Problem: Viral syndrome, Muscle cramps Instructions: Viral Syndrome (ED), Muscle Cramp (ED) Condition: Fair Pt referred to PMD for follow-up: Yes IPMP verified?: No Additional Instructions: Stop taking Phenergen Take zofran instead as needed for Nausea Prescriptions: Ondansetron [Zofran Odt] 4 mg PO Q8H PRN #15 tab.rapdis PRN Reason: Nausea / Vomiting Allergies/Adverse Reactions: Allergies Penicillins Adverse Reaction (Verified 01/12/18 19:26) Sulfa (Sulfonamide Antibiotics) Adverse Reaction (Verified 01/12/18 19:26) sulfamethoxazole [From Bactrim] Adverse Reaction (Verified 01/12/18 19:26) trimethoprim [From Bactrim] Adverse Reaction (Verified 01/12/18 19:26) Home Medications: Ambulatory Orders Ondansetron [Zofran Odt] 4 mg PO Q8H PRN #15 tab.rapdis 01/12/18 Disposition Discussed With: Patient
[2018-01-14] MEDS ORDERED: PERCOCET 5-325 PO STA (08:46)
== END 2018-01-12 21:40 | disposition home or self-care (01) ==
LOC: ED 19:22
DX: B34.9 Viral infection, unspecified (principal); R25.2 Cramp and spasm; F17.210 Nicotine dependence, cigarettes, uncomplicated
CPT/HCPCS: 36415; 80053; 82550; 82553; 83735; 84484; 85025; 93005; 93010; 99283

== ENCOUNTER 2018-06-30 19:50 | Emergency (ER) ==
[2018-06-30 19:59] VITALS: TEMP 98.4; BMI 33.3
[2018-06-30 20:52] VITALS: BP 128/76
--- NOTE | 2018-06-30 21:03 | ED.PDOC ---
General ED Provider: Dr. ZAMZAM SANTANA-ER Chief Complaint: Extremity Swelling/Pain Stated Complaint: my arms and thighs ache--denies any swelling Time Seen by Physician: 19:55 Mode of Arrival: Walk-In Information Source: Patient Exam Limitations: No limitations Primary Care Provider: SYDNI LOW Nursing and Triage Documentation Reviewed and Agree: Yes Does patient meet sepsis criteria?: No System Inflammatory Response Syndrome: Not Applicable Sepsis Protocol: For patient's 13 years and over: Temp is 96.8 and below OR 101 and greater Pulse >90 BPM Resp >20/minute Acutely Altered Mental Status Are patient's symptoms suggestive of a new infection, such as: -Pneumonia -Skin, Soft Tissue -Endocarditis -UTI -Bone, Joint Infection -Implantable Device -Acute Abdominal Infection -Wound Infection -Meningitis -Blood Stream Catheter Infection -Unknown Musculoskeletal Complaint Exam - Upper Extremity Complaint/Exam Location of Pain: Reports: Right, Left, Arm Mechanism of Injury: Reports: No known trauma Symptoms Are: Still present Timing: Intermittent Initial Severity: Mild Current Severity: Mild Character: Reports: Dull, Aching Aggravating: Reports: Movement, Lifting, Flexion, Extension Related History: Reports: Similar episode Upper Extremity Findings: Present: Tenderness. Absent: Swelling, Ecchymosis, Foreign body, Limited range of motion NV Bundle Intact Distal to Injury: Yes Compartment Syndrome Risk Factors: Present: Pain Differential Diagnoses: Other Review of Systems - Review Of Systems Constitutional: Reports: No symptoms Eyes: Reports: No symptoms Ears, Nose, Mouth, Throat: Reports: No symptoms Respiratory: Reports: No symptoms Cardiac: Reports: No symptoms GI: Reports: No symptoms : Reports: No symptoms Musculoskeletal: Reports: Muscle pain, Muscle stiffness Skin: Reports: No symptoms Neurological: Reports: No symptoms Endocrine: Reports: No symptoms Hematologic/Lymphatic: Reports: No symptoms All Other Systems: Reviewed and Negative Past Medical History - Past Medical History Previously Healthy: Yes Endocrine: Reports: None, Dyslipidemia Cardiovascular: Reports: Hypertension Respiratory: Reports: None Hematological: Reports: Anemia Gastrointestinal: Reports: None Genitourinary: Reports: None Neuro/Psych: Reports: Migraine Musculoskeletal: Reports: None Cancer: Reports: None Last Menstrual Period: unknown Other Pertinent Past Medical History: . - Surgical History General Surgical History: Reports: Other (lump removed from right breast 1995) - Family History Family History: Reports: Unknown - Social History Smoking Status: Current some day smoker, Light tobacco smoker Hx Substance Use: No Alcohol Screening: None Physical Exam - Physical Exam Appearance: Well-appearing, No pain distress, Well-nourished Pain Distress: Mild Eyes: BELINDA, EOMI, Conjunctiva clear ENT: Ears normal, Nose normal, Oropharynx normal Neck: Supple Respiratory: Airway patent, Breath sounds clear, Breath sounds equal, Respirations nonlabored Cardiovascular: RRR, Pulses normal, No rub, No murmur GI/: Soft, Nontender, No masses, Bowel sounds normal, No Organomegaly Musculoskeletal: Limited ROM Skin: Warm, Dry, Normal color Neurological: Sensation intact, Motor intact, Reflexes intact, Cranial nerves intact, Alert, Oriented Psychiatric: Affect appropriate, Mood appropriate Critical Care Note - Critical Care Note Total Time (mins): 0 Course - Course Hematology/Chemistry: 06/30/18 20:15 06/30/18 20:15 Orders, Labs, Meds: Lab Review 06/30/18 06/30/18 06/30/18 20:07 20:07 20:15 WBC 6.04 RBC 4.29 Hgb 12.2 Hct 38.5 MCV 89.7 MCH 28.4 MCHC 31.7 L RDW Coeff of Asim 13.3 Plt Count 287 Immature Gran % (Auto) 0.2 Neut % (Auto) 52.2 Lymph % (Auto) 36.8 [place] % (Auto) 6.6 Eos % (Auto) 3.5 Baso % (Auto) 0.7 Immature Gran # (Auto) 0.0 Neut # (Auto) 3.2 Lymph # (Auto) 2.2 [place] # (Auto) 0.4 Eos # (Auto) 0.2 Baso # (Auto) 0.0 D-Dimer (Manual) Sodium Potassium Chloride Carbon Dioxide Anion Gap BUN Creatinine Estimated GFR (MDRD) BUN/Creatinine Ratio Glucose Calcium Total Bilirubin AST ALT Alkaline Phosphatase Total Creatine Kinase CK-MB (CK-2) CK-MB (CK-2) % Troponin I Total Protein Albumin Globulin Albumin/Globulin Ratio TSH Free T4 Urine Color Yellow Urine Clarity Slightly Urine pH 7.5 Ur Specific [place] 1.020 Urine Protein Negative Urine Glucose (UA) Negative Urine Ketones Negative Urine Blood Negative Urine Nitrite Negative Urine Bilirubin Negative Urine Urobilinogen 0.2 Ur Leukocyte Esterase Negative Urine Opiates Screen Negative Ur Oxycodone Screen Negative Urine Methadone Screen Negative Ur Propoxyphene Screen Negative Ur Barbiturates Screen Negative U Tricyclic Antidepress Negative Ur Phencyclidine Scrn Negative Ur Amphetamine Screen Negative U Methamphetamines Scrn Negative U Benzodiazepines Scrn Negative Urine Cocaine Screen Negative U Cannabinoids Screen Negative 06/30/18 06/30/18 06/30/18 20:15 20:15 20:15 WBC RBC Hgb Hct MCV MCH MCHC RDW Coeff of Asim Plt Count Immature Gran % (Auto) Neut % (Auto) Lymph % (Auto) [place] % (Auto) Eos % (Auto) Baso % (Auto) Immature Gran # (Auto) Neut # (Auto) Lymph # (Auto) [place] # (Auto) Eos # (Auto) Baso # (Auto) D-Dimer (Manual) Sodium 139.4 Potassium 3.99 Chloride 104.5 Carbon Dioxide 27.5 Anion Gap 11.39 BUN 15.4 Creatinine 0.95 Estimated GFR (MDRD) 78.00 BUN/Creatinine Ratio 16.21 Glucose 81.7 Calcium 9.41 Total Bilirubin 0.31 AST 20.3 ALT 18.6 Alkaline Phosphatase 82.3 Total Creatine Kinase 158.1 H CK-MB (CK-2) 0.777 CK-MB (CK-2) % 0.4900 Troponin I < 0.012 Total Protein 7.49 Albumin 4.58 Globulin 2.91 Albumin/Globulin Ratio 1.57 TSH 1.900 Free T4 1.07 Urine Color Urine Clarity Urine pH Ur Specific [place] Urine Protein Urine Glucose (UA) Urine Ketones Urine Blood Urine Nitrite Urine Bilirubin Urine Urobilinogen Ur Leukocyte Esterase Urine Opiates Screen Ur Oxycodone Screen Urine Methadone Screen Ur Propoxyphene Screen Ur Barbiturates Screen U Tricyclic Antidepress Ur Phencyclidine Scrn Ur Amphetamine Screen U Methamphetamines Scrn U Benzodiazepines Scrn Urine Cocaine Screen U Cannabinoids Screen 06/30/18 20:15 WBC RBC Hgb Hct MCV MCH MCHC RDW Coeff of Asim Plt Count Immature Gran % (Auto) Neut % (Auto) Lymph % (Auto) [place] % (Auto) Eos % (Auto) Baso % (Auto) Immature Gran # (Auto) Neut # (Auto) Lymph # (Auto) [place] # (Auto) Eos # (Auto) Baso # (Auto) D-Dimer (Manual) 779.91 Sodium Potassium Chloride Carbon Dioxide Anion Gap BUN Creatinine Estimated GFR (MDRD) BUN/Creatinine Ratio Glucose Calcium Total Bilirubin AST ALT Alkaline Phosphatase Total Creatine Kinase CK-MB (CK-2) CK-MB (CK-2) % Troponin I Total Protein Albumin Globulin Albumin/Globulin Ratio TSH Free T4 Urine Color Urine Clarity Urine pH Ur Specific [place] Urine Protein Urine Glucose (UA) Urine Ketones Urine Blood Urine Nitrite Urine Bilirubin Urine Urobilinogen Ur Leukocyte Esterase Urine Opiates Screen Ur Oxycodone Screen Urine Methadone Screen Ur Propoxyphene Screen Ur Barbiturates Screen U Tricyclic Antidepress Ur Phencyclidine Scrn Ur Amphetamine Screen U Methamphetamines Scrn U Benzodiazepines Scrn Urine Cocaine Screen U Cannabinoids Screen Orders Category Date Time Status EKG-(ED ONLY) Stat CARDIO 06/30/18 19:55 Completed ED OPERATING TABLE ASSEMBLER APPLIED .ONCE EMERGENCY 06/30/18 19:55 Active CBC W/ AUTO DIFF Stat LAB 06/30/18 20:15 Completed COMPREHENSIVE METABOLIC PANEL Stat LAB 06/30/18 20:15 Completed CREATINE KINASE Stat LAB 06/30/18 20:15 Completed D-DIMER Stat LAB 06/30/18 20:15 Completed FREE T4 (FREE THYROXINE) Stat LAB 06/30/18 20:15 Completed THYROID STIMULATING HORMONE Stat LAB 06/30/18 20:15 Completed TROPONIN I Stat LAB 06/30/18 20:15 Completed URINALYSIS C & S IF INDICATED Stat LAB 06/30/18 20:07 Completed URINE DRUG SCREEN (RAPID FOR ED) [DRUG SCREEN, URINE, LAB 06/30/18 20:07 Completed RAPID] Stat Vital Signs: Temp Pulse Resp BP Pulse Ox 06/30/18 20:51 84 16 128/76 100 06/30/18 19:52 98.4 F 92 H 20 142/92 H 96 Departure - Departure Time of Disposition: 21:15 Disposition: HOME SELF-CARE Discharge Problem: Myofascial pain Instructions: Trigger Point Pain (ED) Condition: Good Pt referred to PMD for follow-up: Yes IPMP verified?: No Additional Instructions: flexeril 10mg tid prn #30---f/u with pcp Allergies/Adverse Reactions: Allergies Penicillins Adverse Reaction (Verified 06/30/18 20:00) Sulfa (Sulfonamide Antibiotics) Adverse Reaction (Verified 06/30/18 20:00) sulfamethoxazole [From Bactrim] Adverse Reaction (Verified 06/30/18 20:00) trimethoprim [From Bactrim] Adverse Reaction (Verified 06/30/18 20:00) Disposition Discussed With: Patient, Family
== END 2018-06-30 21:10 | disposition home or self-care (01) ==
LOC: ED 19:50
DX: M79.18 Myalgia, other site (principal); F17.210 Nicotine dependence, cigarettes, uncomplicated; E78.5 Hyperlipidemia, unspecified; I10 Essential (primary) hypertension
CPT/HCPCS: 36415; 80053; 80306; 81001; 82550; 82553; 84439; 84443; 84484; 85025; 85379; 93005; 93010; 99283